=== PATIENT | male | born 1945 | race Caucasian/White ===

== ENCOUNTER 2020-02-04 08:11 | Outpatient (CLI) | payer MEDICARE, SELFPAY ==
--- NOTE | 2020-02-04 09:45 | ONC FU_ITS ---
Dr. Bautista follow up note Patient: August Macdonald Unit #: [id number]: 1945 Dicatated By: Hollis Bautista M.D.Date of Visit:Feb 04, 2020 Onc Med Follow-up/Prog Note History of Present Illness: Mr. Macdonald is a 73-year-old gentleman that presented to his primary care provider with a greater than 2 month history of constipation. He was referred to Dr. Donald Hargrove for consultation for evaluation of the constipation with colonoscopy and .Underwent colonoscopy on 03/31/2018. The colonoscopy revealed a large rectosigmoid mass extending from 15 cm from the anal verge all the way to the distal sigmoid. There was a biopsy of the proximal ascending colon which revealed polypoid segments of the colonic mucosa showing tubulous adenoma. Mr. Macdonald underwent CT of the chest, abdomen, pelvis on 03/31/2018 which revealed a 6.6 x 5.8 x 9.2 cm mass in sigmoid colon extension to the adjacent fat. It was producing significant narrowing of the lumen of the sigmoid colon. There was noted to be 0.8 cm lymph node adjacent to the mass. There were no other signs of metastatic disease. He did have repeat sigmoid colon evaluation and removal of a polypoid mass. The pathology revealed infiltrating, adenocarcinoma- moderately differentiated. MLH1, MSH2, MSH6, and PMS2 testing show intact nuclear expression. Mr. Macdonald was referred to radiation medical oncology for further assessment. It was recommended that he have neoadjuvant concurrent therapy prior to surgery resection. He would most likely require adjuvant chemotherapy following the surgery He underwent concurrent chemoradiation with radiation sensitizing agent is Xeloda. from 05/12/2018.till 06/19/2018. Mr Macdonald then had laparoscopic descending colostomy formation and repair of incarcerated umbilical hernia on 09/10/2018 , during laproscopy ,found to have nonresectable colorectal cancer directly invading the base of the bladder and bilateral pelvic sidewalls biopsies were obtained from pelvic mass showed reactive fibroinflammatory changes Mr. Macdonald was been offered palliative chemotherapy with modified FOLFOX-6 cycles. Mr. Macdonald began his first cycle of modified FOLFOX on 10/19/2018. Follow-up CT scan from 01/05/2019 continued to show decrease in the size of the sigmoid and rectal tumor. Residual tumor is difficult to measure but reported at a maximum diameter of approximated 1.8 cm. There is a fat plane the urinary bladder and sigmoid tumor. No adenopathy was reported. Small retroperitoneal nodes are less than 1 cm with no new nodes or increase in size of previous notes. No distant metastasis to the adrenals or liver. His spleen was 19.3 cm which was unchanged. Mr Macdonald was referred to colorectal surgery department at [facility] for second opinion. He saw Dr. Sandeep Pruitt , as per patient, he was a candidate for surgery with end-to-end anastomosis but was advised to finish his recommended 12 cycles of chemotherapy with FOLFOX prior to the surgery. Mr Madconald completed 12 doses of FOLFOX on 03/29/2019. On 05/12/2019, he underwent open right colectomy, anterior resection with the wording loop ileostomy and partial resection of the dome of the bladder and final pathology report showed adenocarcinoma, moderately differentiated with extension into pericolic soft tissue to bladder without invasion of bladder T4 a, clear surgical margins, no bladder involvement and 0 out of 20 positive lymph nodes Mr Macdonald was then referred to GI oncology [facility] for evaluation for clinical trial. He was seen by Dr. Butler on 06/08/2019 as per his evaluation he ordered [employer] and [employer], genomic analysis with his tumor and blood (circulating tumor DNA); baseline scans and it CEA and vitamin D and iron profile. Mr Macdonald declined clinical trial participation and has elected a trial of 6 months of Xeloda.Start his first cycle of modified dose Xeloda on 08/10/2019, for 14 days and repeat every 21 days.Adjuvant oral Xeloda therapy was discontinued on 09/15/2019 at patient's and his request, knowing the risk versus benefits associated with his disease status e.g. being high risk for recurrence. CT scan of abdomen pelvis done on 09/10/2019 showed no evidence of recurrence of disease. Stable mild splenomegaly, slightly aneurysmal distal infrarenal abdominal aorta measuring 2.7 x 2.9 cm. Small collection along the midline abdominal incision near the umbilicus with small pocket of air suspicious for infected fluid collection Left lower quadrant ileostomy.status post ileostomy reversal done on 12/15/[address] Pruitt at [facility], pathology report showed ostomy site changes Came for follow-up, denies any specific complaints, no fever or chills no nausea or vomiting no melena or no diarrhea or constipation, no jaundice, tolerated ileostomy reversal well.. Medications: Aspirin 1 Tablet (of 81 mg) Oral daily, Digoxin 1 Tablet (of 250 mcg) Oral daily, Gabapentin 2 Tablet (of 600 mg) Oral t.i.d., GlipiZIDE 1 Tablet (of 10 mg) Oral b.i.d., Hydrocodone-Acetaminophen 1 Tablet (of 10-325 mg) Oral q 4 to 6 hours PRN, Invokana 1 Tablet (of 300 mg) Oral daily, Januvia 1 Tablet (of 100 mg) Oral daily, Meloxicam 1 Tablet (of 15 mg) Oral daily, Metoprolol Tartrate 1 Tablet (of 1000 mg) Oral daily, Mirtazapine 1 Tablet (of 15 mg) Oral daily, Ondansetron HCl (8 mg) Tablet Oral PRN, Pantoprazole Sodium 1 Tablet (of 40 mg) Tablet, enteric coated Oral daily, ProAir HFA 1 Units (of 108 (90 base) mcg/act) Aerosol, solution Inhalation PRN, Simvastatin 1 Tablet (of 20 mg) Oral daily, Tamsulosin HCl 1 Tablet (of 0.4 mg) Capsule Oral at bedtime, Xeloda 4 Tablet (of 500 mg) Oral b.i.d. Allergies: No Known Allergies. Review of Systems: Constitutional - Appetite is good and weight has increased slightly since last visit. Patient denies any fever, chills, hot flashes, or night swearts. Energy level is fair, ENMT - No sinus congestion/drainage. No mouth sores. No sore throat or difficulty swallowing, Hematologic/Lymphatic - No abnormal bruising or bleeding, Respiratory - Frequent shortness of breath. No cough. No pleuritic pain or hemoptysis, Cardiovascular - No angina pain. No palpitations, Gastrointestinal - No nausea or vomiting. No heartburn or acid reflux. Pt has colostomy, Genitourinary (M) - No dysuria or hematuria. No urinary frequency. No urgency or incontinence, Musculoskeletal - No joint or bone pain, Integumentary - No skin ulcers or open wounds, Neurologic - No headache or dizziness. Patient has some numbness/paresthesias in feet.No other focal neurologic symptoms, Psychiatric - Patient reports some anxiety and depression. No insomnia. Vital Signs: Performed on Feb 04, 2020 08:22 Height - 65.00 in Weight - 227.6 lbs (LOW) BSA - 2.09 sq.m BMI - 37.87 (HIGH) Temperature - 98.1 F (LOW) Pulse - 58 /min (LOW) Respiration - 22 /min BP - 141/62 mm(hg) (HIGH) O2 Sat - 96 % Pain - 0 Performance Status: 0 - Fully active, able to carry on all predisease activities without restrictions. (ECOG) Physical Examination: ENMT - No oral exudates, ulcers, masses, thrush or mucositis. Oropharynx clear. Tongue normal, Respiratory - Lungs are clear to auscultation without rhonchi or wheezing, Cardiovascular - Regular rate and rhythm of heart, Abdomen - Non-tender, non-distended, Good bowel sounds. No guarding or rebound tenderness. No pulsatile masses, Extremities - no edema. Lab/Imaging: Test performed on Feb 02, 2020 18:56 CEA 2.4 ng/mL Test performed on Feb 02, 2020 11:50 Glucose 99 mg/dL BUN 17 mg/dL Creatinine 0.7 mg/dL Cr Clearance (Est) 150.18 mL/min Sodium 138.0 mmol/L Potassium 4.80 mmol/L Chloride 101.0 mmol/L CO2 29 mmol/L Calcium 9.50 mg/dL Protein, Total 7.20 g/dL Albumin 4.0 g/dL Globulin 3.2 g/dL Bilirubin, Total 0.4 mg/dL Alkaline Phosphatase 146 IU/L AST (SGOT) 30.0 IU/L ALT (SGPT) 22 IU/L WBC 7.0 10^9/L RBC 4.54 10^12/L HGB 13.3 g/dL HCT 40.6 % MCV 89.0 fl MCH 29.2 pg MCHC 32.6 g/dL RDW 15.1 % Platelet Count 169 10^9/L MPV 8.8 fL Test performed on Sep 13, 2019 10:11 BUN/Creatinine Ratio 19 Absolute Value Test performed on Aug 23, 2019 09:48 Neutrophils (Gran) 3.60 10^9/L Lymphocytes 0.62 10^9/L Monocytes 0.36 10^9/L Eosinophils 0.11 10^9/L Basophils 0.01 10^9/L Manual Segs 76.40 % Manual Lymphocytes 13.2 % Manual Monocytes 7.7 % Manual Eosinophils 2.40 % Manual Basophils 0.30 % Test performed on Aug 23, 2019 09:05 Vitamin D (1, 25-Dihydroxy) 23 pg/mL Test performed on Aug 10, 2019 10:58 Anion Gap 17.5 Neutrophil % 75.2 % Lymphocyte % 14.0 % Monocyte % 8.7 % Eosinophil % 1.5 % Basophils % 0.6 % Impression: 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 Macdonald is a 73-year-old gentleman that presented to his primary care provider with a greater than 2 month history of constipation. He was referred to Dr. Donald Hargrove for consultation for evaluation of the constipation with colonoscopy.and underwent colonoscopy on 03/31/2018. The colonoscopy revealed a large rectosigmoid mass extending from 15 cm from the anal verge all the way to the distal sigmoid. There was a biopsy of the proximal ascending colon which revealed polypoid segments of the colonic mucosa showing tubulous adenoma. Mr. Macdonald underwent CT of the chest, abdomen, pelvis on 03/31/2018 which revealed a 6.6 x 5.8 x 9.2 cm mass in sigmoid colon extension to the adjacent fat. It was producing significant narrowing of the lumen of the sigmoid colon. There was noted to be 0.8 cm lymph node adjacent to the mass. There were no other signs of metastatic disease. He did have repeat sigmoid colon evaluation and removal of a polypoid mass. The pathology revealed infiltrating, adenocarcinoma- moderately differentiated. MLH1, MSH2, MSH6, and PMS2 testing show intact nuclear expression. Mr. Macdonald was referred to radiation medical oncology for further assessment. It is been record that he have neoadjuvant concurrent therapy prior to surgical resection. He will most likely require adjuvant chemotherapy following the surgery. He began concurrent therapy on 05/12/2018. His Xeloda dose was 1500 mg twice a day on the days of radiation only. He remained on the Xeloda untill 06/19/2018. CT scan of abdomen pelvis done on 07/21/2018 showed significant reduction in the colorectal mass on 09/09/2018, he underwent laparoscopic descending colostomy formation once realized during laparoscopic evaluation the patient has nonresectable colorectal cancer directly invading the base of the bladder and bilateral pelvic sidewalls. And also underwent repair of incarcerated umbilical hernia in [place] 2. COPD 3. Hyperlipidemia 4. CAD stent replacement in 2004 5. Diabetes 6. Abdominal hernia 7. Total left knee replacement Recently on 09/09/2018, underwent laparoscopic evaluation and found to have nonresectable colorectal cancer directly invading the base of the bladder and bilateral pelvic sidewalls although biopsies from this mass showed chronic inflammation. The role of palliative chemotherapy with FOLFOX was discussed in detail and recommended modified dose FOLFOX ???[address] scan of pelvis. Mr Macdonald began his first cycle of chemotherapy on 10/18/2018. He is tolerating it well thus far. Follow-up CT scan of abdomen pelvis done on 01/05/2019 showed continued decrease in size of sigmoid/rectum tumor. Residual tumor is difficult to measure but reported at a maximum diameter of approximated 1.8 cm. There is a fat plane the urinary bladder and sigmoid tumor. No adenopathy was reported. Small retroperitoneal nodes are less than 1 cm with no new nodes or increase in size of previous notes. No distant metastasis to the adrenals or liver. His spleen is 19.3 cm which is unchanged. At patient's request ,he was referred to Department of colorectal surgery at [facility] for second opinion, patient saw Dr. Sandeep Pruitt. As per patient, surgery with end-to-end anastomosis was possible but he was advised to finish his recommended chemotherapy with FOLFOX prior to surgery. He completed 12 doses of FOLFOX on 03/29/2019. He was then referred back to [facility]. Status post concurrent combined chemoradiation with oral Xeloda till June 2018 followed by systemic chemotherapy with modified dose FOLFOX ???12 the 03/29/2019 followed by open right colectomy, anterior resection with diverting loop ileostomy and partial resection of dome of bladder which showed no invasion. Done on 05/12/2019, final pathology report showed adenocarcinoma, moderately differentiated with extension into pericolic soft tissue to bladder without invasion of bladder T4a, surgical margins free of tumor Bladder muscularis propria with fibrosis and no evidence of malignancy. Adenocarcinoma with extensive necrosis with associated fistula tract into periileal soft tissues and invasion limited to muscularis propria of ileum. Appendix with adenocarcinoma limited to periappendiceal soft tissue and no direct invasion of appendix. Left colon with diverticulum and no evidence of malignancy. 20 lymph nodes examined with no evidence of metastatic disease. Dr Bautista discussed with Mr & Mrs Macdonald further treatment options including clinical trials based on guardant 360 results which showed multiple mutation including NRAS,BRAF. and Mr Macdonald declined clinical trial but agreed to try 6 months of Xeloda as recommended by , medical oncologist at [facility]. We will consider Xeloda one thousand milligrams per meter square by mouth twice a day for 2 weeks and repeat every 21 days ???8 cycle, as long as tolerated. We will try this dose for 2 cycles and if tolerated well then will titrate up to 1250 mg/m??? by mouth twice a day 2 weeks on 1 week off. We will also check vit D level and schedule him for CT scan of abdomen pelvis after a month of treatment. Plan: Discussed with patient regarding his labs white blood count 7 hemoglobin 13.3 crit 40.6 platelets 169,000 CMP within normal limits, CEA 2.4 Clinically, patient doing well, with no signs symptoms suggestive of recurrence of disease his follow-up labs , shows within normal range values including CEA level. He will return to clinic in 3 months with CBC CMP and CEA and at that time we will order CT scan of abdomen pelvis as follow-up. Signed By: Hollis Bautista M.D. <<Signature on File>>
== END 2020-02-04 08:12 | disposition home or self-care (01) ==
PROVIDERS: Family Provider Family Medicine; PCP Family Medicine; Visit Provider Internal Medicine Hematology & Oncology
DX: Z08 Encounter for follow-up examination after completed treatment for malignant neoplasm (principal); Z85.038 Personal history of other malignant neoplasm of large intestine; J44.9 Chronic obstructive pulmonary disease, unspecified; E78.5 Hyperlipidemia, unspecified; I25.10 Atherosclerotic heart disease of native coronary artery without angina pectoris; E11.9 Type 2 diabetes mellitus without complications; Z79.82 Long term (current) use of aspirin; Z79.84 Long term (current) use of oral hypoglycemic drugs; Z79.891 Long term (current) use of opiate analgesic; Z96.652 Presence of left artificial knee joint; Z95.5 Presence of coronary angioplasty implant and graft; Z92.21 Personal history of antineoplastic chemotherapy; Z92.3 Personal history of irradiation; Z90.49 Acquired absence of other specified parts of digestive tract
CPT/HCPCS: G0463

== ENCOUNTER 2020-05-05 09:55 | Outpatient (CLI) | payer MEDICARE, SELFPAY ==
--- NOTE | 2020-05-05 10:32 | ONC FU_ITS ---
Dr. Bautista follow up note Patient: August Macdonald Unit #: [id number]: 1945 Dicatated By: Hollis Bautista M.D.Date of Visit:May 05, 2020 Onc Med Follow-up/Prog Note History of Present Illness: Mr. Macdonald is a 74-year-old gentleman that presented to his primary care provider with a greater than 2 month history of constipation. He was referred to Dr. Donald Hargrove for consultation for evaluation of the constipation with colonoscopy and .Underwent colonoscopy on 03/31/2018. The colonoscopy revealed a large rectosigmoid mass extending from 15 cm from the anal verge all the way to the distal sigmoid. There was a biopsy of the proximal ascending colon which revealed polypoid segments of the colonic mucosa showing tubulous adenoma. Mr. Macdonald underwent CT of the chest, abdomen, pelvis on 03/31/2018 which revealed a 6.6 x 5.8 x 9.2 cm mass in sigmoid colon extension to the adjacent fat. It was producing significant narrowing of the lumen of the sigmoid colon. There was noted to be 0.8 cm lymph node adjacent to the mass. There were no other signs of metastatic disease. He did have repeat sigmoid colon evaluation and removal of a polypoid mass. The pathology revealed infiltrating, adenocarcinoma- moderately differentiated. MLH1, MSH2, MSH6, and PMS2 testing show intact nuclear expression. Mr. Macdonald was referred to radiation medical oncology for further assessment. It was recommended that he have neoadjuvant concurrent therapy prior to surgery resection. He would most likely require adjuvant chemotherapy following the surgery He underwent concurrent chemoradiation with radiation sensitizing agent is Xeloda. from 05/12/2018.till 06/19/2018. Mr Macdonald then had laparoscopic descending colostomy formation and repair of incarcerated umbilical hernia on 09/10/2018 , during laproscopy ,found to have nonresectable colorectal cancer directly invading the base of the bladder and bilateral pelvic sidewalls biopsies were obtained from pelvic mass showed reactive fibroinflammatory changes Mr. Macdonald was been offered palliative chemotherapy with modified FOLFOX-6 cycles. Mr. Macdonald began his first cycle of modified FOLFOX on 10/19/2018. Follow-up CT scan from 01/05/2019 continued to show decrease in the size of the sigmoid and rectal tumor. Residual tumor is difficult to measure but reported at a maximum diameter of approximated 1.8 cm. There is a fat plane the urinary bladder and sigmoid tumor. No adenopathy was reported. Small retroperitoneal nodes are less than 1 cm with no new nodes or increase in size of previous notes. No distant metastasis to the adrenals or liver. His spleen was 19.3 cm which was unchanged. Mr Macdonald was referred to colorectal surgery department at [facility] for second opinion. He saw Dr. Sandeep Pruitt , as per patient, he was a candidate for surgery with end-to-end anastomosis but was advised to finish his recommended 12 cycles of chemotherapy with FOLFOX prior to the surgery. Mr Macdonald completed 12 doses of FOLFOX on 03/29/2019. On 05/12/2019, he underwent open right colectomy, anterior resection with the wording loop ileostomy and partial resection of the dome of the bladder and final pathology report showed adenocarcinoma, moderately differentiated with extension into pericolic soft tissue to bladder without invasion of bladder T4 a, clear surgical margins, no bladder involvement and 0 out of 20 positive lymph nodes Mr Macdonald was then referred to GI oncology [facility] for evaluation for clinical trial. He was seen by Dr. Butler on 06/08/2019 as per his evaluation he ordered [employer] and [employer], genomic analysis with his tumor and blood (circulating tumor DNA); baseline scans and it CEA and vitamin D and iron profile. Mr Macdonald declined clinical trial participation and has elected a trial of 6 months of Xeloda.Start his first cycle of modified dose Xeloda on 08/10/2019, for 14 days and repeat every 21 days.Adjuvant oral Xeloda therapy was discontinued on 09/15/2019 at patient's and his request, knowing the risk versus benefits associated with his disease status e.g. being high risk for recurrence. CT scan of abdomen pelvis done on 09/10/2019 showed no evidence of recurrence of disease. Stable mild splenomegaly, slightly aneurysmal distal infrarenal abdominal aorta measuring 2.7 x 2.9 cm. Small collection along the midline abdominal incision near the umbilicus with small pocket of air suspicious for infected fluid collection Left lower quadrant ileostomy.status post ileostomy reversal done on 12/15/[address] Pruitt at [facility], pathology report showed ostomy site changes Came for follow-up, denies any specific complaints with no nausea vomiting no fevers no chills no diarrhea or constipation no jaundice no abdominal pain left lower quadrant ileostomy closure site is healing well with occasionally some discharge. Medications: Aspirin 1 Tablet (of 81 mg) Oral daily, Digoxin 1 Tablet (of 250 mcg) Oral daily, Gabapentin 2 Tablet (of 600 mg) Oral t.i.d., GlipiZIDE 1 Tablet (of 10 mg) Oral b.i.d., Hydrocodone-Acetaminophen 1 Tablet (of 10-325 mg) Oral q 4 to 6 hours PRN, Invokana 1 Tablet (of 300 mg) Oral daily, Januvia 1 Tablet (of 100 mg) Oral daily, Meloxicam 1 Tablet (of 15 mg) Oral daily, Metoprolol Tartrate 1 Tablet (of 25 mg) Oral daily, Mirtazapine 1 Tablet (of 15 mg) Oral daily, Ondansetron HCl (8 mg) Tablet Oral PRN, Pantoprazole Sodium 1 Tablet (of 40 mg) Tablet, enteric coated Oral daily, ProAir HFA 1 Units (of 108 (90 base) mcg/act) Aerosol, solution Inhalation PRN, Simvastatin 1 Tablet (of 20 mg) Oral daily, Tamsulosin HCl 1 Tablet (of 0.4 mg) Capsule Oral at bedtime, Xeloda 4 Tablet (of 500 mg) Oral b.i.d. Allergies: No Known Allergies. Review of Systems: Constitutional - Appetite is good and weight has increased slightly since last visit. Patient denies any fever, chills, hot flashes, or night swearts. Energy level is fair, ENMT - No sinus congestion/drainage. No mouth sores. No sore throat or difficulty swallowing, Hematologic/Lymphatic - No abnormal bruising or bleeding, Respiratory - Frequent shortness of breath. No cough. No pleuritic pain or hemoptysis, Cardiovascular - No angina pain. No palpitations, Gastrointestinal - No nausea or vomiting. No heartburn or acid reflux. Pt has colostomy, Genitourinary (M) - No dysuria or hematuria. No urinary frequency. No urgency or incontinence, Musculoskeletal - No joint or bone pain, Integumentary - No skin ulcers or open wounds, Neurologic - No headache or dizziness. Patient has some numbness/paresthesias in feet.No other focal neurologic symptoms, Psychiatric - Patient reports some anxiety and depression. No insomnia. Vital Signs: Performed on May 05, 2020 10:11 Height - 65.00 in Weight - 126.3 lbs (LOW) BSA - 1.63 sq.m BMI - 21.02 Temperature - 98.0 F (LOW) Pulse - 99 /min Respiration - 17 /min BP - 125/57 mm(hg) O2 Sat - 91 % (LOW) Pain - 0 Performance Status: 0 - Fully active, able to carry on all predisease activities without restrictions. (ECOG) Physical Examination: ENMT - No mouth sores, no thrush, no jaundice, Respiratory - Lungs are clear, Cardiovascular - Regular rate and rhythm of heart, Abdomen - Soft, bowel sounds present, nontender, left lower quadrant post colostomy closure site, no discharge seen nontender, Extremities - No visible edema or rash. 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 Macdonald is a 73-year-old gentleman that presented to his primary care provider with a greater than 2 month history of constipation. He was referred to Dr. Donald Hargrove for consultation for evaluation of the constipation with colonoscopy.and underwent colonoscopy on 03/31/2018. The colonoscopy revealed a large rectosigmoid mass extending from 15 cm from the anal verge all the way to the distal sigmoid. There was a biopsy of the proximal ascending colon which revealed polypoid segments of the colonic mucosa showing tubulous adenoma. Mr. Macdonald underwent CT of the chest, abdomen, pelvis on 03/31/2018 which revealed a 6.6 x 5.8 x 9.2 cm mass in sigmoid colon extension to the adjacent fat. It was producing significant narrowing of the lumen of the sigmoid colon. There was noted to be 0.8 cm lymph node adjacent to the mass. There were no other signs of metastatic disease. He did have repeat sigmoid colon evaluation and removal of a polypoid mass. The pathology revealed infiltrating, adenocarcinoma- moderately differentiated. MLH1, MSH2, MSH6, and PMS2 testing show intact nuclear expression. Mr. Macdonald was referred to radiation medical oncology for further assessment. It is been record that he have neoadjuvant concurrent therapy prior to surgical resection. He will most likely require adjuvant chemotherapy following the surgery. He began concurrent therapy on 05/12/2018. His Xeloda dose was 1500 mg twice a day on the days of radiation only. He remained on the Xeloda untill 06/19/2018. CT scan of abdomen pelvis done on 07/21/2018 showed significant reduction in the colorectal mass on 09/09/2018, he underwent laparoscopic descending colostomy formation once realized during laparoscopic evaluation the patient has nonresectable colorectal cancer directly invading the base of the bladder and bilateral pelvic sidewalls. And also underwent repair of incarcerated umbilical hernia in [place] 2. COPD 3. Hyperlipidemia 4. CAD stent replacement in 2004 5. Diabetes 6. Abdominal hernia 7. Total left knee replacement Recently on 09/09/2018, underwent laparoscopic evaluation and found to have nonresectable colorectal cancer directly invading the base of the bladder and bilateral pelvic sidewalls although biopsies from this mass showed chronic inflammation. The role of palliative chemotherapy with FOLFOX was discussed in detail and recommended modified dose FOLFOX ???[address] scan of pelvis. Mr Macdonald began his first cycle of chemotherapy on 10/18/2018. He is tolerating it well thus far. Follow-up CT scan of abdomen pelvis done on 01/05/2019 showed continued decrease in size of sigmoid/rectum tumor. Residual tumor is difficult to measure but reported at a maximum diameter of approximated 1.8 cm. There is a fat plane the urinary bladder and sigmoid tumor. No adenopathy was reported. Small retroperitoneal nodes are less than 1 cm with no new nodes or increase in size of previous notes. No distant metastasis to the adrenals or liver. His spleen is 19.3 cm which is unchanged. At patient's request ,he was referred to Department of colorectal surgery at [facility] for second opinion, patient saw Dr. Sandeep Pruitt. As per patient, surgery with end-to-end anastomosis was possible but he was advised to finish his recommended chemotherapy with FOLFOX prior to surgery. He completed 12 doses of FOLFOX on 03/29/2019. He was then referred back to [facility]. Status post concurrent combined chemoradiation with oral Xeloda till June 2018 followed by systemic chemotherapy with modified dose FOLFOX ???12 the 03/29/2019 followed by open right colectomy, anterior resection with diverting loop ileostomy and partial resection of dome of bladder which showed no invasion. Done on 05/12/2019, final pathology report showed adenocarcinoma, moderately differentiated with extension into pericolic soft tissue to bladder without invasion of bladder T4a, surgical margins free of tumor Bladder muscularis propria with fibrosis and no evidence of malignancy. Adenocarcinoma with extensive necrosis with associated fistula tract into periileal soft tissues and invasion limited to muscularis propria of ileum. Appendix with adenocarcinoma limited to periappendiceal soft tissue and no direct invasion of appendix. Left colon with diverticulum and no evidence of malignancy. 20 lymph nodes examined with no evidence of metastatic disease. Dr Bautista discussed with Mr & Mrs Macdonald further treatment options including clinical trials based on guardant 360 results which showed multiple mutation including NRAS,BRAF. and Mr Macdonald declined clinical trial but agreed to try 6 months of Xeloda as recommended by , medical oncologist at [facility]. We will consider Xeloda one thousand milligrams per meter square by mouth twice a day for 2 weeks and repeat every 21 days ???8 cycle, as long as tolerated. We will try this dose for 2 cycles and if tolerated well then will titrate up to 1250 mg/m??? by mouth twice a day 2 weeks on 1 week off. We will also check vit D level and schedule him for CT scan of abdomen pelvis after a month of treatment. Plan: Discussed with patient regarding his labs white blood count 6.3 hemoglobin 13.8 crit 42.8 platelets 142,000 CMP within normal limits except glucose 195 and CEA is pending Clinically, patient doing well with no signs symptom suggestive of recurrence of disease. Left lower quadrant colostomy closure site wound is healing well except as per patient off and on lateral discharge not foul-smelling no pus ,no local tenderness observed. At this point, we will schedule him for follow-up CT scan of abdomen pelvis and patient return to clinic in 1 month for port flush and to discuss CT scan findings. Signed By: Hollis Bautista M.D. <<Signature on File>>
== END 2020-05-05 09:56 | disposition home or self-care (01) ==
LOC: ONCMED 09:58
PROVIDERS: PCP Family Medicine; Visit Provider Internal Medicine Hematology & Oncology
DX: Z08 Encounter for follow-up examination after completed treatment for malignant neoplasm (principal); Z85.038 Personal history of other malignant neoplasm of large intestine; J44.9 Chronic obstructive pulmonary disease, unspecified; E78.5 Hyperlipidemia, unspecified; I25.10 Atherosclerotic heart disease of native coronary artery without angina pectoris; E11.9 Type 2 diabetes mellitus without complications; Z90.49 Acquired absence of other specified parts of digestive tract; Z95.5 Presence of coronary angioplasty implant and graft; Z96.652 Presence of left artificial knee joint; Z92.21 Personal history of antineoplastic chemotherapy; Z92.3 Personal history of irradiation; Z95.828 Presence of other vascular implants and grafts
CPT/HCPCS: G0463

== ENCOUNTER 2020-05-22 08:19 | Outpatient (CLI) | payer MEDICARE, SELFPAY ==
--- NOTE | 2020-05-22 08:29 | CT_ITS ---
WS: [id number] CT ABDOMEN PELVIS TECHNIQUE: Contrast-enhanced CT of the abdomen and pelvis with coronal and sagittal reformatted image s. CLINICAL INFORMATION: COLON CANCER COMPARISON: Multiple prior CTs including , 2 , 9 , 5 DLP: 1138.[address] scans at [facility] use at least one of these dose optimization techniques: automat ed exposure control; mA and/or kV adjustment per patient size (includes targeted exams where dose is matched to clinical indication); or iterative reconstruction. FINDINGS: Stable Colostomy revision with interval takedown of the left lower quadrant ileostomy. Postoperative changes distal sigmoid resection with anastomosis is unchanged since . No evidence of new or progressed disease. No evidence of bowel obstruction. No visualized residual sigmoid mass. Anastomosis involving the transverse colon. Previously described small retroperitoneal lymph nodes an d upper abdominal lymph nodes unchanged. No lymphadenopathy. Mild splenomegaly unchanged. Slightly an eurysmal infrarenal abdominal aorta with aortic calcification is stable. Aorta measures approximately 2.8 x 2.9 cm AP by transverse. Normal liver and gallbladder. Adrenal glands are normal. Normal bilateral renal parenchymal enhanceme nt. Slight atelectasis in the lung bases. Previously described small fluid collection along the umbil icus has resolved. No residual drainable fluid collection. Associated fat-containing umbilical hernia . No herniated bowel. CT/CT abdomen pelvis w con* [id number] IMPRESSION: 1. Interval takedown Left lower quadrant ileostomy 2. Prior postoperative changes distal sigmoid resection with anastomosis. No e vidence of new or progressed disease. 3. Postoperative changes with anastomosis transverse colon. 4. No abdominal lymphadenopathy. 5. Previously described small fluid collection along the umbilicus has resolve d. 6. Slightly aneurysmal distal infrarenal abdominal aorta unchanged. 7. Stable mild splenomegaly
[2020-05-22] MEDS: iohexol 300 mg/mL 50 mL Btl PO (08:45)
[2020-05-22] MEDS: iohexol 300 mg/mL 100 mL Btl IV (10:17)
== END 2020-05-22 08:20 | disposition home or self-care (01) ==
LOC: RADWPI 08:25
PROVIDERS: Family Provider Family Medicine; PCP Family Medicine; Visit Provider Internal Medicine Hematology & Oncology
DX: C19 Malignant neoplasm of rectosigmoid junction (principal); I71.4 Abdominal aortic aneurysm, without rupture; R16.1 Splenomegaly, not elsewhere classified
CPT/HCPCS: 74177; Q9967

== ENCOUNTER 2020-06-09 08:55 | Outpatient (CLI) | payer MEDICARE, SELFPAY ==
--- NOTE | 2020-06-09 09:46 | ONC FU_ITS ---
Dr. Bautista follow up note Patient: August Macdonald Unit #: [id number]: 1945 Dicatated By: Hollis Bautista M.D.Date of Visit:Jun 09, 2020 Onc Med Follow-up/Prog Note History of Present Illness: Mr. Macdonald is a 74-year-old gentleman that presented to his primary care provider with a greater than 2 month history of constipation. He was referred to Dr. Donald Hargrove for consultation for evaluation of the constipation with colonoscopy and .Underwent colonoscopy on 03/31/2018. The colonoscopy revealed a large rectosigmoid mass extending from 15 cm from the anal verge all the way to the distal sigmoid. There was a biopsy of the proximal ascending colon which revealed polypoid segments of the colonic mucosa showing tubulous adenoma. Mr. Macdonald underwent CT of the chest, abdomen, pelvis on 03/31/2018 which revealed a 6.6 x 5.8 x 9.2 cm mass in sigmoid colon extension to the adjacent fat. It was producing significant narrowing of the lumen of the sigmoid colon. There was noted to be 0.8 cm lymph node adjacent to the mass. There were no other signs of metastatic disease. He did have repeat sigmoid colon evaluation and removal of a polypoid mass. The pathology revealed infiltrating, adenocarcinoma- moderately differentiated. MLH1, MSH2, MSH6, and PMS2 testing show intact nuclear expression. Mr. Macdonald was referred to radiation medical oncology for further assessment. It was recommended that he have neoadjuvant concurrent therapy prior to surgery resection. He would most likely require adjuvant chemotherapy following the surgery He underwent concurrent chemoradiation with radiation sensitizing agent is Xeloda. from 05/12/2018.till 06/19/2018. Mr Macdonald then had laparoscopic descending colostomy formation and repair of incarcerated umbilical hernia on 09/10/2018 , during laproscopy ,found to have nonresectable colorectal cancer directly invading the base of the bladder and bilateral pelvic sidewalls biopsies were obtained from pelvic mass showed reactive fibroinflammatory changes Mr. Macdonald was been offered palliative chemotherapy with modified FOLFOX-6 cycles. Mr. Macdonald began his first cycle of modified FOLFOX on 10/19/2018. Follow-up CT scan from 01/05/2019 continued to show decrease in the size of the sigmoid and rectal tumor. Residual tumor is difficult to measure but reported at a maximum diameter of approximated 1.8 cm. There is a fat plane the urinary bladder and sigmoid tumor. No adenopathy was reported. Small retroperitoneal nodes are less than 1 cm with no new nodes or increase in size of previous notes. No distant metastasis to the adrenals or liver. His spleen was 19.3 cm which was unchanged. Mr Macdonald was referred to colorectal surgery department at [facility] for second opinion. He saw Dr. Sandeep Pruitt , as per patient, he was a candidate for surgery with end-to-end anastomosis but was advised to finish his recommended 12 cycles of chemotherapy with FOLFOX prior to the surgery. Mr Macdonald completed 12 doses of FOLFOX on 03/29/2019. On 05/12/2019, he underwent open right colectomy, anterior resection with the wording loop ileostomy and partial resection of the dome of the bladder and final pathology report showed adenocarcinoma, moderately differentiated with extension into pericolic soft tissue to bladder without invasion of bladder T4 a, clear surgical margins, no bladder involvement and 0 out of 20 positive lymph nodes Mr Macdonald was then referred to GI oncology [facility] for evaluation for clinical trial. He was seen by Dr. Butler on 06/08/2019 as per his evaluation he ordered [facility] and [employer], genomic analysis with his tumor and blood (circulating tumor DNA); baseline scans and it CEA and vitamin D and iron profile. Mr Macdonald declined clinical trial participation and has elected a trial of 6 months of Xeloda.Start his first cycle of modified dose Xeloda on 08/10/2019, for 14 days and repeat every 21 days.Adjuvant oral Xeloda therapy was discontinued on 09/15/2019 at patient's and his request, knowing the risk versus benefits associated with his disease status e.g. being high risk for recurrence. CT scan of abdomen pelvis done on 09/10/2019 showed no evidence of recurrence of disease. Stable mild splenomegaly, slightly aneurysmal distal infrarenal abdominal aorta measuring 2.7 x 2.9 cm. Small collection along the midline abdominal incision near the umbilicus with small pocket of air suspicious for infected fluid collection Left lower quadrant ileostomy.status post ileostomy reversal done on 12/15/[address] [facility], pathology report showed ostomy site changes Follow-up CT scan of abdomen pelvis done on May 22, 2020 showed interval takedown left lower quadrant ileostomy. No evidence of new or progressive disease. Postoperative changes with anastomosis transverse colon. No abdominal lymphadenopathy. Stable mild splenomegaly., Normal liver. Came for follow-up, denies any specific complaints, no fever chills, no nausea or vomiting, no diarrhea or constipation, no jaundice, no abdominal pain, appetite is good. Medications: Aspirin 1 Tablet (of 81 mg) Oral daily, Digoxin 1 Tablet (of 250 mcg) Oral daily, Gabapentin 2 Tablet (of 600 mg) Oral t.i.d., GlipiZIDE 1 Tablet (of 10 mg) Oral b.i.d., Hydrocodone-Acetaminophen 1 Tablet (of 10-325 mg) Oral q 4 to 6 hours PRN, Invokana 1 Tablet (of 300 mg) Oral daily, Januvia 1 Tablet (of 100 mg) Oral daily, Meloxicam 1 Tablet (of 15 mg) Oral daily, Metoprolol Tartrate 1 Tablet (of 25 mg) Oral daily, Mirtazapine 1 Tablet (of 15 mg) Oral daily, Ondansetron HCl (8 mg) Tablet Oral PRN, Pantoprazole Sodium 1 Tablet (of 40 mg) Tablet, enteric coated Oral daily, ProAir HFA 1 Units (of 108 (90 base) mcg/act) Aerosol, solution Inhalation PRN, Simvastatin 1 Tablet (of 20 mg) Oral daily Allergies: No Known Allergies. Review of Systems: Constitutional - Appetite is good and weight has increased significantly since last visit. Patient denies any fever, chills, hot flashes, or night swearts. Energy level is fair, ENMT - No sinus congestion/drainage. No mouth sores. No sore throat or difficulty swallowing, Hematologic/Lymphatic - No abnormal bruising or bleeding, Respiratory - Frequent shortness of breath. No cough. No pleuritic pain or hemoptysis, Cardiovascular - No angina pain. No palpitations, Gastrointestinal - No nausea or vomiting. No heartburn or acid reflux. Pt has colostomy, Genitourinary (M) - No dysuria or hematuria. No urinary frequency. No urgency or incontinence, Musculoskeletal - No joint or bone pain, Integumentary - No skin ulcers or open wounds, Neurologic - No headache or dizziness. Patient has some numbness/paresthesias in feet.No other focal neurologic symptoms, Psychiatric - Patient reports some anxiety and depression. No insomnia. Vital Signs: Performed on Jun 09, 2020 09:04 Height - 65.00 in Weight - 241 lbs (HIGH) BSA - 2.14 sq.m BMI - 40.10 (HIGH) Temperature - 97.8 F (LOW) Pulse - 97 /min Respiration - 16 /min BP - 152/77 mm(hg) (HIGH) O2 Sat - 88 % (LOW) Pain - 0 Performance Status: 0 - Fully active, able to carry on all predisease activities without restrictions. (ECOG) Physical Examination: ENMT - No mouth sores, no thrush, no jaundice, Respiratory - Lungs are clear, Cardiovascular - Regular rate and rhythm of heart, Abdomen - Soft, bowel sounds, no tenderness, Extremities - No visible edema. 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 Macdonald is a 73-year-old gentleman that presented to his primary care provider with a greater than 2 month history of constipation. He was referred to Dr. Donald Hargrove for consultation for evaluation of the constipation with colonoscopy.and underwent colonoscopy on 03/31/2018. The colonoscopy revealed a large rectosigmoid mass extending from 15 cm from the anal verge all the way to the distal sigmoid. There was a biopsy of the proximal ascending colon which revealed polypoid segments of the colonic mucosa showing tubulous adenoma. Mr. Macdonald underwent CT of the chest, abdomen, pelvis on 03/31/2018 which revealed a 6.6 x 5.8 x 9.2 cm mass in sigmoid colon extension to the adjacent fat. It was producing significant narrowing of the lumen of the sigmoid colon. There was noted to be 0.8 cm lymph node adjacent to the mass. There were no other signs of metastatic disease. He did have repeat sigmoid colon evaluation and removal of a polypoid mass. The pathology revealed infiltrating, adenocarcinoma- moderately differentiated. MLH1, MSH2, MSH6, and PMS2 testing show intact nuclear expression. Mr. Macdonald was referred to radiation medical oncology for further assessment. It is been record that he have neoadjuvant concurrent therapy prior to surgical resection. He will most likely require adjuvant chemotherapy following the surgery. He began concurrent therapy on 05/12/2018. His Xeloda dose was 1500 mg twice a day on the days of radiation only. He remained on the Xeloda untill 06/19/2018. CT scan of abdomen pelvis done on 07/21/2018 showed significant reduction in the colorectal mass on 09/09/2018, he underwent laparoscopic descending colostomy formation once realized during laparoscopic evaluation the patient has nonresectable colorectal cancer directly invading the base of the bladder and bilateral pelvic sidewalls. And also underwent repair of incarcerated umbilical hernia in [place] 2. COPD 3. Hyperlipidemia 4. CAD stent replacement in 2004 5. Diabetes 6. Abdominal hernia 7. Total left knee replacement Recently on 09/09/2018, underwent laparoscopic evaluation and found to have nonresectable colorectal cancer directly invading the base of the bladder and bilateral pelvic sidewalls although biopsies from this mass showed chronic inflammation. The role of palliative chemotherapy with FOLFOX was discussed in detail and recommended modified dose FOLFOX ???[address] scan of pelvis. Mr Macdonald began his first cycle of chemotherapy on 10/18/2018. He is tolerating it well thus far. Follow-up CT scan of abdomen pelvis done on 01/05/2019 showed continued decrease in size of sigmoid/rectum tumor. Residual tumor is difficult to measure but reported at a maximum diameter of approximated 1.8 cm. There is a fat plane the urinary bladder and sigmoid tumor. No adenopathy was reported. Small retroperitoneal nodes are less than 1 cm with no new nodes or increase in size of previous notes. No distant metastasis to the adrenals or liver. His spleen is 19.3 cm which is unchanged. At patient's request ,he was referred to Department of colorectal surgery at [facility] for second opinion, patient saw Dr. Sandeep Pruitt. As per patient, surgery with end-to-end anastomosis was possible but he was advised to finish his recommended chemotherapy with FOLFOX prior to surgery. He completed 12 doses of FOLFOX on 03/29/2019. He was then referred back to [facility]. Status post concurrent combined chemoradiation with oral Xeloda till June 2018 followed by systemic chemotherapy with modified dose FOLFOX ???12 the 03/29/2019 followed by open right colectomy, anterior resection with diverting loop ileostomy and partial resection of dome of bladder which showed no invasion. Done on 05/12/2019, final pathology report showed adenocarcinoma, moderately differentiated with extension into pericolic soft tissue to bladder without invasion of bladder T4a, surgical margins free of tumor Bladder muscularis propria with fibrosis and no evidence of malignancy. Adenocarcinoma with extensive necrosis with associated fistula tract into periileal soft tissues and invasion limited to muscularis propria of ileum. Appendix with adenocarcinoma limited to periappendiceal soft tissue and no direct invasion of appendix. Left colon with diverticulum and no evidence of malignancy. 20 lymph nodes examined with no evidence of metastatic disease. discussed with Mr & Mrs Macdonald further treatment options including clinical trials based on guardant 360 results which showed multiple mutation including NRAS,BRAF. and Mr Macdonald declined clinical trial but agreed to try 6 months of Xeloda as recommended by , medical oncologist at [facility].On August 10, 2019 was sterted on Xeloda one thousand milligrams per meter square by mouth twice a day for 2 weeks and repeat every 21 days ???8 cycle, as long as tolerated. We will try this dose for 2 cycles and if tolerated well then will titrate up to 1250 mg/m??? by mouth twice a day 2 weeks on 1 week off. But adjuvant oral Xeloda therapy was discontinued on September 15, 2019 at patient and his 's request, knowing the risk versus benefits associated with his disease status, being high risk for recurrence. And follow-up CT scan of abdomen pelvis done September 10, 2019 showed no evidence of recurrence of disease except stable mild splenomegaly and slightly aneurysmal distal infrarenal abdominal aorta measuring 2.7 x 2.9 cm. Follow-up CT scan of abdomen pelvis done on May 22, 2020 showed interval takedown left lower quadrant ileostomy and stable mild splenomegaly and no evidence of new or progressive disease, postoperative changes seen. Plan: Discussed with patient regarding his labs white blood count 5.9 hemoglobin 14.1 crit 43 platelets 130,000 CMP within normal limits except glucose 282 Clinically, patient is doing well with no signs symptom suggestive of recurrence of disease. Lab work-up and follow-up CT scan done recently showed no evidence of disease. At this point we will continue to monitor and he will return to clinic in 4 months with CBC CMP and CEA Mild progressive thrombocytopenia could be due to mild splenic sequestration as follow-up CT scan of abdomen shows mild but stable splenomegaly. We will continue to monitor. Patient has history of heavy alcohol use/abuse, not using currently. We will continue to monitor and consider work-up if it (thrombocytopenia) continues to progress Signed By: Hollis Bautista M.D. <<Signature on File>>
== END 2020-06-09 08:56 | disposition home or self-care (01) ==
LOC: ONCMED 09:01
PROVIDERS: PCP Family Medicine; Visit Provider Internal Medicine Hematology & Oncology
DX: Z08 Encounter for follow-up examination after completed treatment for malignant neoplasm (principal); Z85.038 Personal history of other malignant neoplasm of large intestine; D69.6 Thrombocytopenia, unspecified; R16.1 Splenomegaly, not elsewhere classified; F10.11 Alcohol abuse, in remission; Z92.21 Personal history of antineoplastic chemotherapy; Z92.3 Personal history of irradiation; J44.9 Chronic obstructive pulmonary disease, unspecified; E78.5 Hyperlipidemia, unspecified; I25.10 Atherosclerotic heart disease of native coronary artery without angina pectoris; E11.9 Type 2 diabetes mellitus without complications; Z95.5 Presence of coronary angioplasty implant and graft; Z96.652 Presence of left artificial knee joint; Z90.49 Acquired absence of other specified parts of digestive tract
CPT/HCPCS: G0463

== ENCOUNTER 2020-10-06 07:44 | Outpatient (CLI) | payer MEDICARE, SELFPAY ==
--- NOTE | 2020-10-06 10:51 | ONC FU_ITS ---
Dr. Bautista follow up note Patient: August Macdonald Unit #: [id number]: 1945 Dicatated By: Hollis Bautista M.D.Date of Visit:Oct 06, 2020 Onc Med Follow-up/Prog Note History of Present Illness: Mr. Macdonald is a 74-year-old gentleman that presented to his primary care provider with a greater than 2 month history of constipation. He was referred to Dr. Donald Hargrove for consultation for evaluation of the constipation with colonoscopy and .Underwent colonoscopy on 03/31/2018. The colonoscopy revealed a large rectosigmoid mass extending from 15 cm from the anal verge all the way to the distal sigmoid. There was a biopsy of the proximal ascending colon which revealed polypoid segments of the colonic mucosa showing tubulous adenoma. Mr. Macdonald underwent CT of the chest, abdomen, pelvis on 03/31/2018 which revealed a 6.6 x 5.8 x 9.2 cm mass in sigmoid colon extension to the adjacent fat. It was producing significant narrowing of the lumen of the sigmoid colon. There was noted to be 0.8 cm lymph node adjacent to the mass. There were no other signs of metastatic disease. He did have repeat sigmoid colon evaluation and removal of a polypoid mass. The pathology revealed infiltrating, adenocarcinoma- moderately differentiated. MLH1, MSH2, MSH6, and PMS2 testing show intact nuclear expression. Mr. Macdonald was referred to radiation medical oncology for further assessment. It was recommended that he have neoadjuvant concurrent therapy prior to surgery resection. He would most likely require adjuvant chemotherapy following the surgery He underwent concurrent chemoradiation with radiation sensitizing agent is Xeloda. from 05/12/2018.till 06/19/2018. Mr Macdonald then had laparoscopic descending colostomy formation and repair of incarcerated umbilical hernia on 09/10/2018 , during laproscopy ,found to have nonresectable colorectal cancer directly invading the base of the bladder and bilateral pelvic sidewalls biopsies were obtained from pelvic mass showed reactive fibroinflammatory changes Mr. Macdonald was been offered palliative chemotherapy with modified FOLFOX-6 cycles. Mr. Macdonald began his first cycle of modified FOLFOX on 10/19/2018. Follow-up CT scan from 01/05/2019 continued to show decrease in the size of the sigmoid and rectal tumor. Residual tumor is difficult to measure but reported at a maximum diameter of approximated 1.8 cm. There is a fat plane the urinary bladder and sigmoid tumor. No adenopathy was reported. Small retroperitoneal nodes are less than 1 cm with no new nodes or increase in size of previous notes. No distant metastasis to the adrenals or liver. His spleen was 19.3 cm which was unchanged. Mr Macdonald was referred to colorectal surgery department at [facility] for second opinion. He saw Dr. Sandeep Pruitt , as per patient, he was a candidate for surgery with end-to-end anastomosis but was advised to finish his recommended 12 cycles of chemotherapy with FOLFOX prior to the surgery. Mr Macdonald completed 12 doses of FOLFOX on 03/29/2019. On 05/12/2019, he underwent open right colectomy, anterior resection with the wording loop ileostomy and partial resection of the dome of the bladder and final pathology report showed adenocarcinoma, moderately differentiated with extension into pericolic soft tissue to bladder without invasion of bladder T4 a, clear surgical margins, no bladder involvement and 0 out of 20 positive lymph nodes Mr Macdonald was then referred to GI oncology [facility] for evaluation for clinical trial. He was seen by Dr. Butler on 06/08/2019 as per his evaluation he ordered [employer] and [employer], genomic analysis with his tumor and blood (circulating tumor DNA); baseline scans and it CEA and vitamin D and iron profile. Mr Macdonald declined clinical trial participation and has elected a trial of 6 months of Xeloda.Start his first cycle of modified dose Xeloda on 08/10/2019, for 14 days and repeat every 21 days.Adjuvant oral Xeloda therapy was discontinued on 09/15/2019 at patient's and his request, knowing the risk versus benefits associated with his disease status e.g. being high risk for recurrence. CT scan of abdomen pelvis done on 09/10/2019 showed no evidence of recurrence of disease. Stable mild splenomegaly, slightly aneurysmal distal infrarenal abdominal aorta measuring 2.7 x 2.9 cm. Small collection along the midline abdominal incision near the umbilicus with small pocket of air suspicious for infected fluid collection Left lower quadrant ileostomy.status post ileostomy reversal done on 12/15/[address] Pruitt at [facility], pathology report showed ostomy site changes Follow-up CT scan of abdomen pelvis done on May 22, 2020 showed interval takedown left lower quadrant ileostomy. No evidence of new or progressive disease. Postoperative changes with anastomosis transverse colon. No abdominal lymphadenopathy. Stable mild splenomegaly., Normal liver. Came for follow-up, denies any specific complaints, no fever chills, no nausea or vomiting, no diarrhea constipation, no melena or hematochezia, no jaundice, no abdominal pain, appetite is good Medications: Aspirin 1 Tablet (of 81 mg) Oral daily, Digoxin 1 Tablet (of 250 mcg) Oral daily, Gabapentin 2 Tablet (of 600 mg) Oral t.i.d., GlipiZIDE 1 Tablet (of 10 mg) Oral b.i.d., Hydrocodone-Acetaminophen 1 Tablet (of 10-325 mg) Oral q 4 to 6 hours PRN, Invokana 1 Tablet (of 300 mg) Oral daily, Januvia 1 Tablet (of 100 mg) Oral daily, Meloxicam 1 Tablet (of 15 mg) Oral daily, Metoprolol Tartrate 1 Tablet (of 25 mg) Oral daily, Mirtazapine 1 Tablet (of 15 mg) Oral daily, Ondansetron HCl (8 mg) Tablet Oral PRN, Pantoprazole Sodium 1 Tablet (of 40 mg) Tablet, enteric coated Oral daily, ProAir HFA 1 Units (of 108 (90 base) mcg/act) Aerosol, solution Inhalation PRN, Simvastatin 1 Tablet (of 20 mg) Oral daily Allergies: No Known Allergies. Review of Systems: Review of Systems is not available for this patient. Vital Signs: Performed on Oct 06, 2020 08:10 Height - 65.00 in Weight - 239.0 lbs (LOW) BSA - 2.13 sq.m BMI - 39.77 (HIGH) Temperature - 97.7 F (LOW) Pulse - 95 /min Respiration - 20 /min BP - 143/74 mm(hg) (HIGH) O2 Sat - 94 % (LOW) Pain - 0 Performance Status: 0 - Fully active, able to carry on all predisease activities without restrictions. (ECOG) Physical Examination: ENMT - No mouth sores, no thrush, no joint, Respiratory - Lungs are clear to auscultation, Cardiovascular - Regular rate and rhythm of heart, Abdomen - Soft, bowel sounds present, Extremities - No visible edema or rash. 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 Macdonald is a 74-year-old gentleman that presented to his primary care provider with a greater than 2 month history of constipation. He was referred to Dr. Donald Hargrove for consultation for evaluation of the constipation with colonoscopy.and underwent colonoscopy on 03/31/2018. The colonoscopy revealed a large rectosigmoid mass extending from 15 cm from the anal verge all the way to the distal sigmoid. There was a biopsy of the proximal ascending colon which revealed polypoid segments of the colonic mucosa showing tubulous adenoma. Mr. Macdonald underwent CT of the chest, abdomen, pelvis on 03/31/2018 which revealed a 6.6 x 5.8 x 9.2 cm mass in sigmoid colon extension to the adjacent fat. It was producing significant narrowing of the lumen of the sigmoid colon. There was noted to be 0.8 cm lymph node adjacent to the mass. There were no other signs of metastatic disease. He did have repeat sigmoid colon evaluation and removal of a polypoid mass. The pathology revealed infiltrating, adenocarcinoma- moderately differentiated. MLH1, MSH2, MSH6, and PMS2 testing show intact nuclear expression. Mr. Macdonald was referred to radiation medical oncology for further assessment. It is been record that he have neoadjuvant concurrent therapy prior to surgical resection. He will most likely require adjuvant chemotherapy following the surgery. He began concurrent therapy on 05/12/2018. His Xeloda dose was 1500 mg twice a day on the days of radiation only. He remained on the Xeloda untill 06/19/2018. CT scan of abdomen pelvis done on 07/21/2018 showed significant reduction in the colorectal mass on 09/09/2018, he underwent laparoscopic descending colostomy formation once realized during laparoscopic evaluation the patient has nonresectable colorectal cancer directly invading the base of the bladder and bilateral pelvic sidewalls. And also underwent repair of incarcerated umbilical hernia in [place] 2. COPD 3. Hyperlipidemia 4. CAD stent replacement in 2004 5. Diabetes 6. Abdominal hernia 7. Total left knee replacement Recently on 09/09/2018, underwent laparoscopic evaluation and found to have nonresectable colorectal cancer directly invading the base of the bladder and bilateral pelvic sidewalls although biopsies from this mass showed chronic inflammation. The role of palliative chemotherapy with FOLFOX was discussed in detail and recommended modified dose FOLFOX ???[address] scan of pelvis. Mr Macdonald began his first cycle of chemotherapy on 10/18/2018. He is tolerating it well thus far. Follow-up CT scan of abdomen pelvis done on 01/05/2019 showed continued decrease in size of sigmoid/rectum tumor. Residual tumor is difficult to measure but reported at a maximum diameter of approximated 1.8 cm. There is a fat plane the urinary bladder and sigmoid tumor. No adenopathy was reported. Small retroperitoneal nodes are less than 1 cm with no new nodes or increase in size of previous notes. No distant metastasis to the adrenals or liver. His spleen is 19.3 cm which is unchanged. At patient's request ,he was referred to Department of colorectal surgery at [facility] for second opinion, patient saw Dr. Sandeep Pruitt. As per patient, surgery with end-to-end anastomosis was possible but he was advised to finish his recommended chemotherapy with FOLFOX prior to surgery. He completed 12 doses of FOLFOX on 03/29/2019. He was then referred back to [facility]. Status post concurrent combined chemoradiation with oral Xeloda till June 2018 followed by systemic chemotherapy with modified dose FOLFOX ???12 the 03/29/2019 followed by open right colectomy, anterior resection with diverting loop ileostomy and partial resection of dome of bladder which showed no invasion. Done on 05/12/2019, final pathology report showed adenocarcinoma, moderately differentiated with extension into pericolic soft tissue to bladder without invasion of bladder T4a, surgical margins free of tumor Bladder muscularis propria with fibrosis and no evidence of malignancy. Adenocarcinoma with extensive necrosis with associated fistula tract into periileal soft tissues and invasion limited to muscularis propria of ileum. Appendix with adenocarcinoma limited to periappendiceal soft tissue and no direct invasion of appendix. Left colon with diverticulum and no evidence of malignancy. 20 lymph nodes examined with no evidence of metastatic disease. discussed with Mr & Mrs Macdonald further treatment options including clinical trials based on guardant 360 results which showed multiple mutation including NRAS,BRAF. and Mr Macdonald declined clinical trial but agreed to try 6 months of Xeloda as recommended by , medical oncologist at [facility].On August 10, 2019 was sterted on Xeloda one thousand milligrams per meter square by mouth twice a day for 2 weeks and repeat every 21 days ???8 cycle, as long as tolerated. We will try this dose for 2 cycles and if tolerated well then will titrate up to 1250 mg/m??? by mouth twice a day 2 weeks on 1 week off. But adjuvant oral Xeloda therapy was discontinued on September 15, 2019 at patient and his 's request, knowing the risk versus benefits associated with his disease status, being high risk for recurrence. And follow-up CT scan of abdomen pelvis done September 10, 2019 showed no evidence of recurrence of disease except stable mild splenomegaly and slightly aneurysmal distal infrarenal abdominal aorta measuring 2.7 x 2.9 cm. Follow-up CT scan of abdomen pelvis done on May 22, 2020 showed interval takedown left lower quadrant ileostomy and stable mild splenomegaly and no evidence of new or progressive disease, postoperative changes seen. Plan: Discussed with patient regarding his labs white blood count 5.5 hemoglobin 14.9 hematocrit 44.9 platelets 127,000 compared to 130,000 on June 06, 2020, CMP within normal limit except potassium 5.3 glucose 172, creatinine 0.8 and CEA 2.2 Clinically, patient doing well with no signs symptom suggestive of recurrence of disease his lab work-up looks in normal range and stable with persistent mild thrombocytopenia. We will continue to monitor and then he will return to clinic in 3 months with CBC CMP and follow-up CT scan of abdomen pelvis. Signed By: Hollis Bautista M.D. <<Signature on File>>
== END 2020-10-06 07:45 | disposition home or self-care (01) ==
LOC: ONCMED 07:47
PROVIDERS: PCP Family Medicine; Visit Provider Internal Medicine Hematology & Oncology
DX: C19 Malignant neoplasm of rectosigmoid junction (principal); Z92.3 Personal history of irradiation; Z92.21 Personal history of antineoplastic chemotherapy; J44.9 Chronic obstructive pulmonary disease, unspecified; E78.5 Hyperlipidemia, unspecified; I25.10 Atherosclerotic heart disease of native coronary artery without angina pectoris; E11.9 Type 2 diabetes mellitus without complications; K46.9 Unspecified abdominal hernia without obstruction or gangrene; Z96.652 Presence of left artificial knee joint
CPT/HCPCS: G0463

== ENCOUNTER 2020-12-29 09:43 | Outpatient (CLI) | payer MEDICARE, SELFPAY ==
--- NOTE | 2020-12-29 09:51 | CT_ITS ---
WS: [id number] CT ABDOMEN AND PELVIS WITH CONTRAST HISTORY: COLON CANCER, MALIGNANT NEOPLASM OF RECTOSIGMOID JUNCTION TECHNIQUE: Imaging performed of the abdomen and pelvis with IV contrast. Single phase imaging of the abdomen. Coronal and sagittal reformats are submitted. All CT scans at [facility] use at least one of these dose optimization techniques: automated exposure control; mA and/or kV adjustment per patient size (includes targeted exams where dose is matched to clinical indication); or iterativ e reconstruction. IV CONTRAST: Omnipaque 300; 95 mL IV. Oral contrast: Yes. DLP: 1089.97 mGycm COMPARISON: 09/10/2019 and 05/22/2020 Lower thorax: Lung bases are clear. Mildly enlarged heart. Coronary artery calcifications. No signifi cant hiatal hernia. Liver/biliary system: Normal size with no metastatic lesions. No bile duct dilatation. Gallbladder: Normal. No gallstones or wall thickening. No pericholecystic fluid. Pancreas: Normal. Spleen: Spleen is enlarged measuring 20 cm in length. Similar to the prior examination. Adrenal glands: Normal. Right kidney: Mild perinephric stranding. No obstruction or solid mass. Left kidney: Mild perinephric stranding. No obstruction or solid mass. Low-attenuation area in the lo wer pole is probably a small cyst. No interval [employer] several prior studies. Aorta: Moderate atherosclerotic plaque with mild ectasia. Lymphadenopathy: Numerous small mesenteric and retroperitoneal lymph nodes. These lymph nodes are les s than a centimeter and have been present on multiple prior examinations with no increase in size or number. Free fluid: None. GI tract: Anastomotic site in the sigmoid demonstrates no recurrent lesions. There is an additional a nastomotic site in the transverse colon. There is increased fecal material but no obstruction or recu rrent mass identified. No increasing soft tissue. Numerous diverticula throughout the sigmoid colon w ith no inflammation. Abdominal wall: Surgical soft tissue scarring at the LEFT ileostomy site. Pelvis: Very mildly prominent prostate gland. Urinary bladder is negative. No lymph nodes or fluid. Bones: L4 anterolisthesis by 4 mm. Mild facet joint arthritis. No fractures. CT/CT abdomen pelvis w con* [id number] IMPRESSION: 1. No evidence for metastatic disease or recurrent neoplasm at the colonic monty stomosis sites. 2. Small mesenteric and retroperitoneal lymph nodes are stable over multiple p rior studies. 3. Sigmoid diverticulosis without diverticulitis. 4. Moderate splenomegaly, unchanged.
[2020-12-29] MEDS: iohexol 300 mg/mL 50 mL Btl PO (09:58)
[2020-12-29 11:12] LABS: Blood Urea Nitrogen 13 mg/dL (8-23)
[2020-12-29] MEDS: iohexol 300 mg/mL 100 mL Btl IV (11:18)
== END 2020-12-29 09:44 | disposition home or self-care (01) ==
LOC: RADWPI 09:46
PROVIDERS: PCP Family Medicine; Visit Provider Internal Medicine Hematology & Oncology
DX: C19 Malignant neoplasm of rectosigmoid junction (principal)
CPT/HCPCS: 74177; 82565; 84520; Q9967

== ENCOUNTER 2021-01-12 08:07 | Outpatient (CLI) | payer MEDICARE, SELFPAY ==
--- NOTE | 2021-01-12 09:17 | ONC FU_ITS ---
Dr. Bautista follow up note Patient: August Macdonald Unit #: [id number]: 1945 Dicatated By: Hollis Bautista M.D.Date of Visit:Jan 12, 2021 Onc Med Follow-up/Prog Note History of Present Illness: Mr. Macdonald is a 74-year-old gentleman that presented to his primary care provider with a greater than 2 month history of constipation. He was referred to Dr. Donald Hargrove for consultation for evaluation of the constipation with colonoscopy and .Underwent colonoscopy on 03/31/2018. The colonoscopy revealed a large rectosigmoid mass extending from 15 cm from the anal verge all the way to the distal sigmoid. There was a biopsy of the proximal ascending colon which revealed polypoid segments of the colonic mucosa showing tubulous adenoma. Mr. Macdonald underwent CT of the chest, abdomen, pelvis on 03/31/2018 which revealed a 6.6 x 5.8 x 9.2 cm mass in sigmoid colon extension to the adjacent fat. It was producing significant narrowing of the lumen of the sigmoid colon. There was noted to be 0.8 cm lymph node adjacent to the mass. There were no other signs of metastatic disease. He did have repeat sigmoid colon evaluation and removal of a polypoid mass. The pathology revealed infiltrating, adenocarcinoma- moderately differentiated. MLH1, MSH2, MSH6, and PMS2 testing show intact nuclear expression. Mr. Macdonald was referred to radiation medical oncology for further assessment. It was recommended that he have neoadjuvant concurrent therapy prior to surgery resection. He would most likely require adjuvant chemotherapy following the surgery He underwent concurrent chemoradiation with radiation sensitizing agent is Xeloda. from 05/12/2018.till 06/19/2018. Mr Macdonald then had laparoscopic descending colostomy formation and repair of incarcerated umbilical hernia on 09/10/2018 , during laproscopy ,found to have nonresectable colorectal cancer directly invading the base of the bladder and bilateral pelvic sidewalls biopsies were obtained from pelvic mass showed reactive fibroinflammatory changes Mr. Macdonald was been offered palliative chemotherapy with modified FOLFOX-6 cycles. Mr. Macdonald began his first cycle of modified FOLFOX on 10/19/2018. Follow-up CT scan from 01/05/2019 continued to show decrease in the size of the sigmoid and rectal tumor. Residual tumor is difficult to measure but reported at a maximum diameter of approximated 1.8 cm. There is a fat plane the urinary bladder and sigmoid tumor. No adenopathy was reported. Small retroperitoneal nodes are less than 1 cm with no new nodes or increase in size of previous notes. No distant metastasis to the adrenals or liver. His spleen was 19.3 cm which was unchanged. Mr Macdonald was referred to colorectal surgery department at [facility] for second opinion. He saw Dr. Sandeep Pruitt , as per patient, he was a candidate for surgery with end-to-end anastomosis but was advised to finish his recommended 12 cycles of chemotherapy with FOLFOX prior to the surgery. Mr Macdonald completed 12 doses of FOLFOX on 03/29/2019. On 05/12/2019, he underwent open right colectomy, anterior resection with the wording loop ileostomy and partial resection of the dome of the bladder and final pathology report showed adenocarcinoma, moderately differentiated with extension into pericolic soft tissue to bladder without invasion of bladder T4 a, clear surgical margins, no bladder involvement and 0 out of 20 positive lymph nodes Mr Macdonald was then referred to GI oncology [facility] for evaluation for clinical trial. He was seen by Dr. Butler on 06/08/2019 as per his evaluation he ordered [employer] [facility], genomic analysis with his tumor and blood (circulating tumor DNA); baseline scans and it CEA and vitamin D and iron profile. Mr Macdonald declined clinical trial participation and has elected a trial of 6 months of Xeloda.Start his first cycle of modified dose Xeloda on 08/10/2019, for 14 days and repeat every 21 days.Adjuvant oral Xeloda therapy was discontinued on 09/15/2019 at patient's and his request, knowing the risk versus benefits associated with his disease status e.g. being high risk for recurrence. CT scan of abdomen pelvis done on 09/10/2019 showed no evidence of recurrence of disease. Stable mild splenomegaly, slightly aneurysmal distal infrarenal abdominal aorta measuring 2.7 x 2.9 cm. Small collection along the midline abdominal incision near the umbilicus with small pocket of air suspicious for infected fluid collection Left lower quadrant ileostomy.status post ileostomy reversal done on 12/15/[address]ru[address] at [facility], pathology report showed ostomy site changes Follow-up CT scan of abdomen pelvis done on May 22, 2020 showed interval takedown left lower quadrant ileostomy. No evidence of new or progressive disease. Postoperative changes with anastomosis transverse colon. No abdominal lymphadenopathy. Stable mild splenomegaly., Normal liver. Follow-up CT scan of abdomen pelvis done on December 29, 2020 showed no evidence of metastatic disease or recurrent neoplasm mild chronic anastomosis sites small mesenteric and retroperitoneal lymph nodes are stable ,sigmoid diverticulosis without diverticulitis, moderate splenomegaly, unchanged Came for follow-up, denies any specific complaints, no fever chills, no nausea or vomiting, no diarrhea constipation, no melena or hematochezia, no hemoptysis hematemesis, no jaundice, no abdominal pain, appetite is good. Medications: Aspirin 1 Tablet (of 81 mg) Oral daily, Digoxin 1 Tablet (of 250 mcg) Oral daily, Farxiga (10 mg) Tablet Oral daily, Gabapentin 2 Tablet (of 600 mg) Oral t.i.d., GlipiZIDE 1 Tablet (of 10 mg) Oral b.i.d., Hydrocodone-Acetaminophen 1 Tablet (of 10-325 mg) Oral q 4 to 6 hours PRN, Januvia 1 Tablet (of 100 mg) Oral daily, Meloxicam 1 Tablet (of 15 mg) Oral daily, MetFORMIN HCl ER (MOD) 1 Tablet (of 1000 mg) Tablet SR 24 HR Oral b.i.d., Metoprolol Tartrate 1 Tablet (of 25 mg) Oral daily, Mirtazapine 1 Tablet (of 15 mg) Oral daily, Ondansetron HCl (8 mg) Tablet Oral PRN, Pantoprazole Sodium 1 Tablet (of 40 mg) Tablet, enteric coated Oral daily, ProAir HFA 1 Units (of 108 (90 base) mcg/act) Aerosol, solution Inhalation PRN, Simvastatin 1 Tablet (of 20 mg) Oral daily Allergies: No Known Allergies. Review of Systems: Review of Systems is not available for this patient. Vital Signs: Performed on Jan 12, 2021 08:26 Height - 65.00 in Weight - 241.6 lbs (HIGH) BSA - 2.14 sq.m BMI - 40.20 (HIGH) Temperature - 97.2 F (LOW) Pulse - 93 /min Respiration - 17 /min BP - 134/67 mm(hg) O2 Sat - 90 % (LOW) Pain - 0 Fatigue - 0 Performance Status: 1 - No physically strenuous activity, but ambulatory and able to carry out light or sedentary work (e.g. office work, light house work). (ECOG) Physical Examination: ENMT - No mouth sores, no thrush, no jaundice, Respiratory - Lungs are clear to auscultation, Cardiovascular - Regular rate and rhythm of heart, Abdomen - No bowel sounds present, Extremities - No visible edema. Lab/Imaging: Test performed on Jan 09, 2021 08:40 Glucose 192 mg/dL BUN 15 mg/dL Creatinine 0.8 mg/dL Cr Clearance (Est) 126.10 mL/min Sodium 138.0 mmol/L Potassium 5.10 mmol/L Chloride 101.0 mmol/L CO2 30 mmol/L Calcium 9.50 mg/dL Protein, Total 6.90 g/dL Albumin 3.6 g/dL Globulin 3.2 g/dL A/G Ratio 0.5 Absolute Value Bilirubin, Total 0.5 mg/dL Alkaline Phosphatase 129 IU/L AST (SGOT) 37.0 IU/L ALT (SGPT) 24 IU/L WBC 5.6 10^9/L RBC 4.45 10^12/L HGB 14.5 g/dL HCT 44.9 % MCV 101.0 fl MCH 32.7 pg MCHC 32.4 g/dL RDW 12.7 % Platelet Count 111 10^9/L MPV 9.4 fL CEA 2.4 ng/mL Test performed on Oct 04, 2020 12:39 BUN/Creatinine Ratio 21 Absolute Value Impression: 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 Macdonald is a 74-year-old gentleman that presented to his primary care provider with a greater than 2 month history of constipation. He was referred to Dr. Donald Hargrove for consultation for evaluation of the constipation with colonoscopy.and underwent colonoscopy on 03/31/2018. The colonoscopy revealed a large rectosigmoid mass extending from 15 cm from the anal verge all the way to the distal sigmoid. There was a biopsy of the proximal ascending colon which revealed polypoid segments of the colonic mucosa showing tubulous adenoma. Mr. Macdonald underwent CT of the chest, abdomen, pelvis on 03/31/2018 which revealed a 6.6 x 5.8 x 9.2 cm mass in sigmoid colon extension to the adjacent fat. It was producing significant narrowing of the lumen of the sigmoid colon. There was noted to be 0.8 cm lymph node adjacent to the mass. There were no other signs of metastatic disease. He did have repeat sigmoid colon evaluation and removal of a polypoid mass. The pathology revealed infiltrating, adenocarcinoma- moderately differentiated. MLH1, MSH2, MSH6, and PMS2 testing show intact nuclear expression. Mr. Macdonald was referred to radiation medical oncology for further assessment. It is been record that he have neoadjuvant concurrent therapy prior to surgical resection. He will most likely require adjuvant chemotherapy following the surgery. He began concurrent therapy on 05/12/2018. His Xeloda dose was 1500 mg twice a day on the days of radiation only. He remained on the Xeloda untill 06/19/2018. CT scan of abdomen pelvis done on 07/21/2018 showed significant reduction in the colorectal mass on 09/09/2018, he underwent laparoscopic descending colostomy formation once realized during laparoscopic evaluation the patient has nonresectable colorectal cancer directly invading the base of the bladder and bilateral pelvic sidewalls. And also underwent repair of incarcerated umbilical hernia in [place] 2. COPD 3. Hyperlipidemia 4. CAD stent replacement in 2004 5. Diabetes 6. Abdominal hernia 7. Total left knee replacement Recently on 09/09/2018, underwent laparoscopic evaluation and found to have nonresectable colorectal cancer directly invading the base of the bladder and bilateral pelvic sidewalls although biopsies from this mass showed chronic inflammation. The role of palliative chemotherapy with FOLFOX was discussed in detail and recommended modified dose FOLFOX ???[address] scan of pelvis. Mr Macdonald began his first cycle of chemotherapy on 10/18/2018. He is tolerating it well thus far. Follow-up CT scan of abdomen pelvis done on 01/05/2019 showed continued decrease in size of sigmoid/rectum tumor. Residual tumor is difficult to measure but reported at a maximum diameter of approximated 1.8 cm. There is a fat plane the urinary bladder and sigmoid tumor. No adenopathy was reported. Small retroperitoneal nodes are less than 1 cm with no new nodes or increase in size of previous notes. No distant metastasis to the adrenals or liver. His spleen is 19.3 cm which is unchanged. At patient's request ,he was referred to Department of colorectal surgery at [facility] for second opinion, patient saw Dr. Sandeep Pruitt. As per patient, surgery with end-to-end anastomosis was possible but he was advised to finish his recommended chemotherapy with FOLFOX prior to surgery. He completed 12 doses of FOLFOX on 03/29/2019. He was then referred back to [facility]. Status post concurrent combined chemoradiation with oral Xeloda till June 2018 followed by systemic chemotherapy with modified dose FOLFOX ???12 the 03/29/2019 followed by open right colectomy, anterior resection with diverting loop ileostomy and partial resection of dome of bladder which showed no invasion. Done on 05/12/2019, final pathology report showed adenocarcinoma, moderately differentiated with extension into pericolic soft tissue to bladder without invasion of bladder T4a, surgical margins free of tumor Bladder muscularis propria with fibrosis and no evidence of malignancy. Adenocarcinoma with extensive necrosis with associated fistula tract into periileal soft tissues and invasion limited to muscularis propria of ileum. Appendix with adenocarcinoma limited to periappendiceal soft tissue and no direct invasion of appendix. Left colon with diverticulum and no evidence of malignancy. 20 lymph nodes examined with no evidence of metastatic disease. discussed with Mr & Mrs Macdonald further treatment options including clinical trials based on guardant 360 results which showed multiple mutation including NRAS,BRAF. and Mr Macdonald declined clinical trial but agreed to try 6 months of Xeloda as recommended by , medical oncologist at [facility].On August 10, 2019 was sterted on Xeloda one thousand milligrams per meter square by mouth twice a day for 2 weeks and repeat every 21 days ???8 cycle, as long as tolerated. We will try this dose for 2 cycles and if tolerated well then will titrate up to 1250 mg/m??? by mouth twice a day 2 weeks on 1 week off. But adjuvant oral Xeloda therapy was discontinued on September 15, 2019 at patient and his 's request, knowing the risk versus benefits associated with his disease status, being high risk for recurrence. And follow-up CT scan of abdomen pelvis done September 10, 2019 showed no evidence of recurrence of disease except stable mild splenomegaly and slightly aneurysmal distal infrarenal abdominal aorta measuring 2.7 x 2.9 cm. Follow-up CT scan of abdomen pelvis done on May 22, 2020 showed interval takedown left lower quadrant ileostomy and stable mild splenomegaly and no evidence of new or progressive disease, postoperative changes seen. Follow-up CT scan done on December 29, 2020 showed no evidence of metastatic disease or recurrent neoplasm at colonic anastomosis site. Small mesenteric and retroperitoneal lymph nodes are stable. Moderate splenomegaly, unchanged Plan: Discussed with patient regarding his labs white blood count 5.6 hemoglobin 14.5 hematocrit 44.9 platelets 111,000, CMP within normal limit CEA 2.4 and follow-up CT scan of abdomen pelvis done recently showed no evidence of recurrence of disease Clinically, patient is doing well with no new signs symptom suggestive of recurrence of disease his lab work-up and follow-up CT scan of abdomen pelvis shows no recurrence of disease, will continue to monitor and he will return to clinic in 4 months with CBC CMP CEA and follow-up CT scan of abdomen pelvis and will also request Dr. Hargrove for follow-up colonoscopy. Signed By: Hollis Bautista M.D. <<Signature on File>>
== END 2021-01-12 08:08 | disposition home or self-care (01) ==
LOC: ONCMED 08:10
PROVIDERS: PCP Family Medicine; Visit Provider Internal Medicine Hematology & Oncology
DX: Z08 Encounter for follow-up examination after completed treatment for malignant neoplasm (principal); Z85.038 Personal history of other malignant neoplasm of large intestine; Z90.49 Acquired absence of other specified parts of digestive tract; Z92.21 Personal history of antineoplastic chemotherapy
CPT/HCPCS: 99214

== ENCOUNTER 2021-04-30 09:20 | Outpatient (CLI) | payer MEDICARE, SELFPAY ==
--- NOTE | 2021-04-30 | CT_ITS ---
WS: [id number] CT ABDOMEN PELVIS TECHNIQUE: Contrast-enhanced CT of the abdomen and pelvis with coronal and sagittal reformatted image s. CLINICAL INFORMATION: COLON CANCER, F/U PREVIOUS CT SCAN COMPARISON: CT December 29, 2020 DLP: 1876.[address] scans at [facility] use at least one of these dose optimization techniques: automat ed exposure control; mA and/or kV adjustment per patient size (includes targeted exams where dose is matched to clinical indication); or iterative reconstruction. FINDINGS: Slight subsegmental atelectasis in the lung bases. Hepatomegaly. Diffuse fatty infiltration of the li guilherme. Splenomegaly. Normal portal vein and splenic vein. Mild fatty atrophy of the pancreas. Small eso phageal hiatal hernia. Sigmoid diverticulosis. No evidence of acute diverticulitis. Prior postoperative changes transverse c olon and sigmoid colon with partial colectomy. Adrenal glands are normal. Normal renal parenchymal en hancement. No hydronephrosis. Normal caliber abdominal aorta. Slightly ectatic distal abdominal aorta measuring 2.4 x 2.7 CM. Slight anterolisthesis L4 on L5. Prior left ileostomy. CT/CT abdomen pelvis w con* [id number] IMPRESSION: 1. Prior postoperative changes sigmoid colon and transverse colon with partial colectomy. 2. No evidence of recurrent or metastatic disease. 3. No adenopathy in the abdomen or pelvis. 4. Hepatomegaly and splenomegaly. Diffuse fatty infiltration liver. 5. No other significant changes from previous.
[2021-04-30 09:59] LABS: Basophils % 0.6 %; Eosinophils # 0.1 10^3/uL (0.0-0.8); Eosinophils % 0.8 %; Hematocrit 46.6 % (42.0-52.0); Hemoglobin 15.4 g/dL (11.7-16.6); Lymphocytes # 0.9 10^3/uL (0.8-4.8); Lymphocytes % 13.9 %; Mean Corpuscular Hemoglobin 31.4 pg (28.0-34.0); Mean Corpuscular Volume 95.1 fL (80-94); Monocytes # 0.8 10^3/uL (0.2-0.9); Monocytes % 11.7 %; Neutrophils # 4.79 10^3/uL (1.8-7.7); Neutrophils % 72.1 %; Nucleated Red Blood Cells % 0 %; Platelet Count 136 10^3/cmm (130-400); Red Cell Distribution Width 13.2 % (12.1-15.1); White Blood Count 6.6 10^3/uL (4.0-10.0)
[2021-04-30 10:21] LABS: Carcinoembryonic Antigen 4.7 ng/mL (0.0-4.7)
[2021-04-30 10:32] LABS: Alanine Aminotransferase 23 U/L (0-41); Albumin Level 3.9 g/dL (3.5-5.2); Alkaline Phosphatase 156 IU/L (40-130); Anion Gap 16.7 (5-19); Aspartate Amino Transferase 25 U/L (0-40); Blood Urea Nitrogen 13 mg/dL (8-23); Calcium 9.6 mg/dL (8.5-10.5); Carbon Dioxide 27 mmol/L (22-29); Chloride 96 mmol/L (98-107); Globulin 3.4 g/dL (1.3-4.6); Glucose 164 mg/dL (65-115); Osmolality Calculated 284 mOsm/kg (285-295); Potassium 4.7 mmol/L (3.5-5.1); Sodium 135 mmol/L (136-145); Total Bilirubin 0.5 mg/dL (0.15-1.2); Total Protein 7.3 g/dL (6.6-8.7)
[2021-04-30] MEDS: iohexol 300 mg/mL 100 mL Btl IV (11:34)
== END 2021-04-30 09:21 | disposition home or self-care (01) ==
LOC: ONCMED 09:22
PROVIDERS: PCP Family Medicine; Visit Provider Internal Medicine Hematology & Oncology
DX: Z85.038 Personal history of other malignant neoplasm of large intestine (principal)
CPT/HCPCS: 36415; 74177; 80053; 82378; 85025; Q9967

== ENCOUNTER 2021-05-03 06:01 | Outpatient (CLI) | payer MEDICARE, SELFPAY ==
--- NOTE | 2021-05-04 13:07 | ONC FU_ITS ---
Dr. Bautista follow up note Patient: August Macdonald Unit #: [id number]: 1945 Dicatated By: Hollis Bautista M.D.Date of Visit:May 03, 2021 Onc Med Follow-up/Prog Note History of Present Illness: Mr. Macdonald is a 75-year-old gentleman that presented to his primary care provider with a greater than 2 month history of constipation. He was referred to Dr. Donald Hargrove for consultation for evaluation of the constipation with colonoscopy and .Underwent colonoscopy on 03/31/2018. The colonoscopy revealed a large rectosigmoid mass extending from 15 cm from the anal verge all the way to the distal sigmoid. There was a biopsy of the proximal ascending colon which revealed polypoid segments of the colonic mucosa showing tubulous adenoma. Mr. Macdonald underwent CT of the chest, abdomen, pelvis on 03/31/2018 which revealed a 6.6 x 5.8 x 9.2 cm mass in sigmoid colon extension to the adjacent fat. It was producing significant narrowing of the lumen of the sigmoid colon. There was noted to be 0.8 cm lymph node adjacent to the mass. There were no other signs of metastatic disease. He did have repeat sigmoid colon evaluation and removal of a polypoid mass. The pathology revealed infiltrating, adenocarcinoma- moderately differentiated. MLH1, MSH2, MSH6, and PMS2 testing show intact nuclear expression. Mr. Macdonald was referred to radiation medical oncology for further assessment. It was recommended that he have neoadjuvant concurrent therapy prior to surgery resection. He would most likely require adjuvant chemotherapy following the surgery He underwent concurrent chemoradiation with radiation sensitizing agent is Xeloda. from 05/12/2018.till 06/19/2018. Mr Macdonald then had laparoscopic descending colostomy formation and repair of incarcerated umbilical hernia on 09/10/2018 , during laproscopy ,found to have nonresectable colorectal cancer directly invading the base of the bladder and bilateral pelvic sidewalls biopsies were obtained from pelvic mass showed reactive fibroinflammatory changes Mr. Macdonald was been offered palliative chemotherapy with modified FOLFOX-6 cycles. Mr. Macdonald began his first cycle of modified FOLFOX on 10/19/2018. Follow-up CT scan from 01/05/2019 continued to show decrease in the size of the sigmoid and rectal tumor. Residual tumor is difficult to measure but reported at a maximum diameter of approximated 1.8 cm. There is a fat plane the urinary bladder and sigmoid tumor. No adenopathy was reported. Small retroperitoneal nodes are less than 1 cm with no new nodes or increase in size of previous notes. No distant metastasis to the adrenals or liver. His spleen was 19.3 cm which was unchanged. Mr Macdonald was referred to colorectal surgery department at [facility] for second opinion. He saw Dr. Sandeep Pruitt , as per patient, he was a candidate for surgery with end-to-end anastomosis but was advised to finish his recommended 12 cycles of chemotherapy with FOLFOX prior to the surgery. Mr Macdonald completed 12 doses of FOLFOX on 03/29/2019. On 05/12/2019, he underwent open right colectomy, anterior resection with the wording loop ileostomy and partial resection of the dome of the bladder and final pathology report showed adenocarcinoma, moderately differentiated with extension into pericolic soft tissue to bladder without invasion of bladder T4 a, clear surgical margins, no bladder involvement and 0 out of 20 positive lymph nodes Mr Macdonald was then referred to GI oncology [facility] for evaluation for clinical trial. He was seen by Dr. Butler on 06/08/2019 as per his evaluation he ordered [employer], genomic analysis with his tumor and blood (circulating tumor DNA); baseline scans and it CEA and vitamin D and iron profile. Mr Macdonald declined clinical trial participation and has elected a trial of 6 months of Xeloda.Start his first cycle of modified dose Xeloda on 08/10/2019, for 14 days and repeat every 21 days.Adjuvant oral Xeloda therapy was discontinued on 09/15/2019 at patient's and his request, knowing the risk versus benefits associated with his disease status e.g. being high risk for recurrence. CT scan of abdomen pelvis done on 09/10/2019 showed no evidence of recurrence of disease. Stable mild splenomegaly, slightly aneurysmal distal infrarenal abdominal aorta measuring 2.7 x 2.9 cm. Small collection along the midline abdominal incision near the umbilicus with small pocket of air suspicious for infected fluid collection Left lower quadrant ileostomy.status post ileostomy reversal done on 12/15/[address] Pruitt at [facility], pathology report showed ostomy site changes Follow-up CT scan of abdomen pelvis done on May 22, 2020 showed interval takedown left lower quadrant ileostomy. No evidence of new or progressive disease. Postoperative changes with anastomosis transverse colon. No abdominal lymphadenopathy. Stable mild splenomegaly., Normal liver. Follow-up CT scan of abdomen pelvis done on December 29, 2020 showed no evidence of metastatic disease or recurrent neoplasm mild chronic anastomosis sites small mesenteric and retroperitoneal lymph nodes are stable ,sigmoid diverticulosis without diverticulitis, moderate splenomegaly, unchanged Follow-up CT scan of abdomen pelvis done on April 30, 2021 showed no evidence of recurrent or metastatic disease, postoperative changes in sigmoid colon/transverse colon Hepatomegaly and splenomegaly, diffuse fatty infiltration of liver Colonoscopy done on February 18, 2021 showed desmoplastic changes in large bowel, as per patient biopsies were obtained and no abnormality seen Came for follow-up, denies any specific complaints, no fever chills, no nausea or vomiting, no diarrhea constipation, no abdominal pain, no melena or hematochezia, no jaundice, no weight loss, appetite is good Medications: Aspirin 1 Tablet (of 81 mg) Oral daily, Digoxin 1 Tablet (of 250 mcg) Oral daily, Farxiga (10 mg) Tablet Oral daily, Gabapentin 2 Tablet (of 600 mg) Oral t.i.d., GlipiZIDE 1 Tablet (of 10 mg) Oral b.i.d., Hydrocodone-Acetaminophen 1 Tablet (of 10-325 mg) Oral q 4 to 6 hours PRN, Januvia 1 Tablet (of 100 mg) Oral daily, Meloxicam 1 Tablet (of 15 mg) Oral daily, MetFORMIN HCl ER (MOD) 1 Tablet (of 1000 mg) Tablet SR 24 HR Oral b.i.d., Metoprolol Tartrate 1 Tablet (of 25 mg) Oral daily, Mirtazapine 1 Tablet (of 15 mg) Oral daily, Ondansetron HCl (8 mg) Tablet Oral PRN, Pantoprazole Sodium 1 Tablet (of 40 mg) Tablet, enteric coated Oral daily, ProAir HFA 1 Units (of 108 (90 base) mcg/act) Aerosol, solution Inhalation PRN, Simvastatin 1 Tablet (of 20 mg) Oral daily Allergies: No Known Allergies. Review of Systems: Review of Systems is not available for this patient. Vital Signs: Performed on May 03, 2021 09:13 Height - 65.00 in Weight - 240.6 lbs (LOW) BSA - 2.14 sq.m BMI - 40.04 (HIGH) Temperature - 97.0 F (LOW) Pulse - 90 /min Respiration - 17 /min BP - 112/65 mm(hg) O2 Sat - 91 % (LOW) Pain - 0 Performance Status: 0 - Fully active, able to carry on all predisease activities without restrictions. (ECOG) Physical Examination: ENMT - No mouth sores, no thrush, no jaundice, Respiratory - Lungs are clear to auscultation, Cardiovascular - Regular rate and rhythm of heart, Abdomen - Soft, bowel sounds present, Extremities - No visible edema. 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 Macdonald is a 75-year-old gentleman that presented to his primary care provider with a greater than 2 month history of constipation. He was referred to Dr. Donald Hargrove for consultation for evaluation of the constipation with colonoscopy.and underwent colonoscopy on 03/31/2018. The colonoscopy revealed a large rectosigmoid mass extending from 15 cm from the anal verge all the way to the distal sigmoid. There was a biopsy of the proximal ascending colon which revealed polypoid segments of the colonic mucosa showing tubulous adenoma. Mr. Macdonald underwent CT of the chest, abdomen, pelvis on 03/31/2018 which revealed a 6.6 x 5.8 x 9.2 cm mass in sigmoid colon extension to the adjacent fat. It was producing significant narrowing of the lumen of the sigmoid colon. There was noted to be 0.8 cm lymph node adjacent to the mass. There were no other signs of metastatic disease. He did have repeat sigmoid colon evaluation and removal of a polypoid mass. The pathology revealed infiltrating, adenocarcinoma- moderately differentiated. MLH1, MSH2, MSH6, and PMS2 testing show intact nuclear expression. Mr. Macdonald was referred to radiation medical oncology for further assessment. It is been record that he have neoadjuvant concurrent therapy prior to surgical resection. He will most likely require adjuvant chemotherapy following the surgery. He began concurrent therapy on 05/12/2018. His Xeloda dose was 1500 mg twice a day on the days of radiation only. He remained on the Xeloda untill 06/19/2018. CT scan of abdomen pelvis done on 07/21/2018 showed significant reduction in the colorectal mass on 09/09/2018, he underwent laparoscopic descending colostomy formation once realized during laparoscopic evaluation the patient has nonresectable colorectal cancer directly invading the base of the bladder and bilateral pelvic sidewalls. And also underwent repair of incarcerated umbilical hernia in [place] 2. COPD 3. Hyperlipidemia 4. CAD stent replacement in 2004 5. Diabetes 6. Abdominal hernia 7. Total left knee replacement Recently on 09/09/2018, underwent laparoscopic evaluation and found to have nonresectable colorectal cancer directly invading the base of the bladder and bilateral pelvic sidewalls although biopsies from this mass showed chronic inflammation. The role of palliative chemotherapy with FOLFOX was discussed in detail and recommended modified dose FOLFOX ???[address] scan of pelvis. Mr Macdonald began his first cycle of chemotherapy on 10/18/2018. He is tolerating it well thus far. Follow-up CT scan of abdomen pelvis done on 01/05/2019 showed continued decrease in size of sigmoid/rectum tumor. Residual tumor is difficult to measure but reported at a maximum diameter of approximated 1.8 cm. There is a fat plane the urinary bladder and sigmoid tumor. No adenopathy was reported. Small retroperitoneal nodes are less than 1 cm with no new nodes or increase in size of previous notes. No distant metastasis to the adrenals or liver. His spleen is 19.3 cm which is unchanged. At patient's request ,he was referred to Department of colorectal surgery at [facility] for second opinion, patient saw Dr. Sandeep Pruitt. As per patient, surgery with end-to-end anastomosis was possible but he was advised to finish his recommended chemotherapy with FOLFOX prior to surgery. He completed 12 doses of FOLFOX on 03/29/2019. He was then referred back to [facility]. Status post concurrent combined chemoradiation with oral Xeloda till June 2018 followed by systemic chemotherapy with modified dose FOLFOX ???12 the 03/29/2019 followed by open right colectomy, anterior resection with diverting loop ileostomy and partial resection of dome of bladder which showed no invasion. Done on 05/12/2019, final pathology report showed adenocarcinoma, moderately differentiated with extension into pericolic soft tissue to bladder without invasion of bladder T4a, surgical margins free of tumor Bladder muscularis propria with fibrosis and no evidence of malignancy. Adenocarcinoma with extensive necrosis with associated fistula tract into periileal soft tissues and invasion limited to muscularis propria of ileum. Appendix with adenocarcinoma limited to periappendiceal soft tissue and no direct invasion of appendix. Left colon with diverticulum and no evidence of malignancy. 20 lymph nodes examined with no evidence of metastatic disease. discussed with Mr & Mrs Macdonald further treatment options including clinical trials based on guardant 360 results which showed multiple mutation including NRAS,BRAF. and Mr Macdonald declined clinical trial but agreed to try 6 months of Xeloda as recommended by , medical oncologist at [facility].On August 10, 2019 was sterted on Xeloda one thousand milligrams per meter square by mouth twice a day for 2 weeks and repeat every 21 days ???8 cycle, as long as tolerated. We will try this dose for 2 cycles and if tolerated well then will titrate up to 1250 mg/m??? by mouth twice a day 2 weeks on 1 week off. But adjuvant oral Xeloda therapy was discontinued on September 15, 2019 at patient and his 's request, knowing the risk versus benefits associated with his disease status, being high risk for recurrence. And follow-up CT scan of abdomen pelvis done September 10, 2019 showed no evidence of recurrence of disease except stable mild splenomegaly and slightly aneurysmal distal infrarenal abdominal aorta measuring 2.7 x 2.9 cm. Follow-up CT scan of abdomen pelvis done on May 22, 2020 showed interval takedown left lower quadrant ileostomy and stable mild splenomegaly and no evidence of new or progressive disease, postoperative changes seen. Follow-up CT scan done on December 29, 2020 showed no evidence of metastatic disease or recurrent neoplasm at colonic anastomosis site. Small mesenteric and retroperitoneal lymph nodes are stable. Moderate splenomegaly, unchanged Follow-up CT scan of abdomen pelvis done on April 30, 2021 shows no evidence of recurrence or metastatic disease. Postop changes in sigmoid colon/transverse colon. Persistent hepatosplenomegaly but stable, diffuse fatty infiltration of liver Colonoscopy done on February 20, 2021 showed no evidence of neoplastic recurrence but gastroplasty changes in the large bowel, biopsy was obtained, as per patient it was benign. Plan: Discussed with patient regarding his labs white blood count 6.6 hemoglobin 15.4 hematocrit 44.6 platelets 236,000 CMP within normal limit except glucose 164 and CEA 4.[address] scan of abdomen which showed no evidence of recurrence of disease but persistent hepatosplenomegaly and colonoscopy report Clinically, patient has no signs symptom suggestive of recurrence of disease which is confirmed with follow-up CT scan of abdomen pelvis as well as colonoscopy done recently, his follow-up lab work-up is within normal range but mildly elevated CEA still in normal range, will continue to monitor and patient return to clinic in 6 months with CBC CMP and CEA in the meantime he will continue monthly port flush Signed By: Hollis Bautista M.D. <<Signature on File>>
== END 2021-05-03 06:02 | disposition home or self-care (01) ==
LOC: ONCMED 06:02
PROVIDERS: PCP Family Medicine; Visit Provider Internal Medicine Hematology & Oncology
DX: Z45.2 Encounter for adjustment and management of vascular access device (principal)
CPT/HCPCS: 96523; 99214

== ENCOUNTER 2021-11-07 08:54 | Outpatient (CLI) | payer MEDICARE, SELFPAY ==
--- NOTE | 2021-11-07 16:11 | ONC FU_ITS ---
Dr. Bautista follow up note Patient: August Macdonald Unit #: [id number]: 1945 Dicatated By: Hollis Bautista M.D.Date of Visit:Nov 07, 2021 Onc Med Follow-up/Prog Note History of Present Illness: Mr. Macdonald is a 76-year-old gentleman that presented to his primary care provider with a greater than 2 month history of constipation. He was referred to Dr. Donald Hargrove for consultation for evaluation of the constipation with colonoscopy and .Underwent colonoscopy on 03/31/2018. The colonoscopy revealed a large rectosigmoid mass extending from 15 cm from the anal verge all the way to the distal sigmoid. There was a biopsy of the proximal ascending colon which revealed polypoid segments of the colonic mucosa showing tubulous adenoma. Mr. Macdonald underwent CT of the chest, abdomen, pelvis on 03/31/2018 which revealed a 6.6 x 5.8 x 9.2 cm mass in sigmoid colon extension to the adjacent fat. It was producing significant narrowing of the lumen of the sigmoid colon. There was noted to be 0.8 cm lymph node adjacent to the mass. There were no other signs of metastatic disease. He did have repeat sigmoid colon evaluation and removal of a polypoid mass. The pathology revealed infiltrating, adenocarcinoma- moderately differentiated. MLH1, MSH2, MSH6, and PMS2 testing show intact nuclear expression. Mr. Macdonald was referred to radiation medical oncology for further assessment. It was recommended that he have neoadjuvant concurrent therapy prior to surgery resection. He would most likely require adjuvant chemotherapy following the surgery He underwent concurrent chemoradiation with radiation sensitizing agent is Xeloda. from 05/12/2018.till 06/19/2018. Mr Macdonald then had laparoscopic descending colostomy formation and repair of incarcerated umbilical hernia on 09/10/2018 , during laproscopy ,found to have nonresectable colorectal cancer directly invading the base of the bladder and bilateral pelvic sidewalls biopsies were obtained from pelvic mass showed reactive fibroinflammatory changes Mr. Macdonald was been offered palliative chemotherapy with modified FOLFOX-6 cycles. Mr. Macdonald began his first cycle of modified FOLFOX on 10/19/2018. Follow-up CT scan from 01/05/2019 continued to show decrease in the size of the sigmoid and rectal tumor. Residual tumor is difficult to measure but reported at a maximum diameter of approximated 1.8 cm. There is a fat plane the urinary bladder and sigmoid tumor. No adenopathy was reported. Small retroperitoneal nodes are less than 1 cm with no new nodes or increase in size of previous notes. No distant metastasis to the adrenals or liver. His spleen was 19.3 cm which was unchanged. Mr Macdonald was referred to colorectal surgery department at [facility] for second opinion. He saw Dr. Sandeep Pruitt , as per patient, he was a candidate for surgery with end-to-end anastomosis but was advised to finish his recommended 12 cycles of chemotherapy with FOLFOX prior to the surgery. Mr Macdonald completed 12 doses of FOLFOX on 03/29/2019. On 05/12/2019, he underwent open right colectomy, anterior resection with the wording loop ileostomy and partial resection of the dome of the bladder and final pathology report showed adenocarcinoma, moderately differentiated with extension into pericolic soft tissue to bladder without invasion of bladder T4 a, clear surgical margins, no bladder involvement and 0 out of 20 positive lymph nodes Mr Macdonald was then referred to GI oncology [facility] for evaluation for clinical trial. He was seen by Dr. Butler on 06/08/2019 as per his evaluation he ordered [employer] and [employer], genomic analysis with his tumor and blood (circulating tumor DNA); baseline scans and it CEA and vitamin D and iron profile. Mr Macdonald declined clinical trial participation and has elected a trial of 6 months of Xeloda.Start his first cycle of modified dose Xeloda on 08/10/2019, for 14 days and repeat every 21 days.Adjuvant oral Xeloda therapy was discontinued on 09/15/2019 at patient's and his request, knowing the risk versus benefits associated with his disease status e.g. being high risk for recurrence. CT scan of abdomen pelvis done on 09/10/2019 showed no evidence of recurrence of disease. Stable mild splenomegaly, slightly aneurysmal distal infrarenal abdominal aorta measuring 2.7 x 2.9 cm. Small collection along the midline abdominal incision near the umbilicus with small pocket of air suspicious for infected fluid collection Left lower quadrant ileostomy.status post ileostomy reversal done on 12/15/[address] Pruitt at [facility], pathology report showed ostomy site changes Follow-up CT scan of abdomen pelvis done on May 22, 2020 showed interval takedown left lower quadrant ileostomy. No evidence of new or progressive disease. Postoperative changes with anastomosis transverse colon. No abdominal lymphadenopathy. Stable mild splenomegaly., Normal liver. Follow-up CT scan of abdomen pelvis done on December 29, 2020 showed no evidence of metastatic disease or recurrent neoplasm mild chronic anastomosis sites small mesenteric and retroperitoneal lymph nodes are stable ,sigmoid diverticulosis without diverticulitis, moderate splenomegaly, unchanged Follow-up CT scan of abdomen pelvis done on April 30, 2021 showed no evidence of recurrent or metastatic disease, postoperative changes in sigmoid colon/transverse colon Hepatomegaly and splenomegaly, diffuse fatty infiltration of liver Colonoscopy done on February 18, 2021 showed desmoplastic changes in large bowel, as per patient biopsies were obtained and no abnormality seen Came for follow-up, denies any specific complaints, no fever chills, no nausea or vomiting, no diarrhea or constipation, no abdominal pain, no jaundice, no shortness of breath or palpitation Medications: Aspirin 1 Tablet (of 81 mg) Oral daily, Digoxin 1 Tablet (of 250 mcg) Oral daily, Farxiga (10 mg) Tablet Oral daily, Gabapentin 2 Tablet (of 600 mg) Oral t.i.d., GlipiZIDE 1 Tablet (of 10 mg) Oral b.i.d., Hydrocodone-Acetaminophen 1 Tablet (of 10-325 mg) Oral q 4 to 6 hours PRN, Januvia 1 Tablet (of 100 mg) Oral daily, Meloxicam 1 Tablet (of 15 mg) Oral daily, MetFORMIN HCl ER (MOD) 1 Tablet (of 1000 mg) Tablet SR 24 HR Oral b.i.d., Metoprolol Tartrate 1 Tablet (of 25 mg) Oral daily, Mirtazapine 1 Tablet (of 15 mg) Oral daily, Ondansetron HCl (8 mg) Tablet Oral PRN, Pantoprazole Sodium 1 Tablet (of 40 mg) Tablet, enteric coated Oral daily, ProAir HFA 1 Units (of 108 (90 base) mcg/act) Aerosol, solution Inhalation PRN, Simvastatin 1 Tablet (of 20 mg) Oral daily Allergies: No Known Allergies. Review of Systems: Review of Systems is not available for this patient. Vital Signs: Performed on Nov 07, 2021 09:14 Height - 65.00 in Weight - 247.0 lbs (HIGH) BSA - 2.16 sq.m BMI - 41.10 (HIGH) Temperature - 97.7 F (LOW) Pulse - 82 /min Respiration - 20 /min BP - 141/71 mm(hg) (HIGH) O2 Sat - 92 % (LOW) Pain - 0 Fatigue - 3 Performance Status: 0 - Fully active, able to carry on all predisease activities without restrictions. (ECOG) Physical Examination: ENMT - No mouth sores, no thrush, no jaundice, Respiratory - Lungs are clear to auscultation, Cardiovascular - Regular rate and rhythm of heart, Abdomen - Soft, bowel sounds present, Extremities - No visible edema. Lab/Imaging: Test performed on Nov 01, 2021 14:41 Glucose 195 mg/dL BUN 24 mg/dL Creatinine 1 mg/dL Cr Clearance (Est) 102.7000 mL/min Sodium 134 mmol/L Potassium 4.9 mmol/L Chloride 102 mmol/L CO2 24 mmol/L Calcium 9.5 mg/dL Protein, Total 7.1 g/dL Albumin 3.8 g/dL Globulin 3 g/dL Bilirubin, Total 0.3 mg/dL Alkaline Phosphatase 169 International Units/L AST (SGOT) 29 International Units/L ALT (SGPT) 21 International Units/L WBC 4.9 10^9/L RBC 4.22 10^12/L HGB 13.5 g/dL HCT 41.7 % MCV 99 fl MCH 32 pg MCHC 32.4 g/dL RDW 13.2 % Platelet Count 92 10^9/L Neutrophils (Gran) 3.63 10^9/L Lymphocytes 0.64 10^9/L Monocytes 0.52 10^9/L Eosinophils 0.06 10^9/L Basophils 0.02 10^9/L CEA 1.9 ng/mL Impression: 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 Macdonald is a 75-year-old gentleman that presented to his primary care provider with a greater than 2 month history of constipation. He was referred to Dr. Donald Hargrove for consultation for evaluation of the constipation with colonoscopy.and underwent colonoscopy on 03/31/2018. The colonoscopy revealed a large rectosigmoid mass extending from 15 cm from the anal verge all the way to the distal sigmoid. There was a biopsy of the proximal ascending colon which revealed polypoid segments of the colonic mucosa showing tubulous adenoma. Mr. Macdonald underwent CT of the chest, abdomen, pelvis on 03/31/2018 which revealed a 6.6 x 5.8 x 9.2 cm mass in sigmoid colon extension to the adjacent fat. It was producing significant narrowing of the lumen of the sigmoid colon. There was noted to be 0.8 cm lymph node adjacent to the mass. There were no other signs of metastatic disease. He did have repeat sigmoid colon evaluation and removal of a polypoid mass. The pathology revealed infiltrating, adenocarcinoma- moderately differentiated. MLH1, MSH2, MSH6, and PMS2 testing show intact nuclear expression. Mr. Macdonald was referred to radiation medical oncology for further assessment. It is been record that he have neoadjuvant concurrent therapy prior to surgical resection. He will most likely require adjuvant chemotherapy following the surgery. He began concurrent therapy on 05/12/2018. His Xeloda dose was 1500 mg twice a day on the days of radiation only. He remained on the Xeloda untill 06/19/2018. CT scan of abdomen pelvis done on 07/21/2018 showed significant reduction in the colorectal mass on 09/09/2018, he underwent laparoscopic descending colostomy formation once realized during laparoscopic evaluation the patient has nonresectable colorectal cancer directly invading the base of the bladder and bilateral pelvic sidewalls. And also underwent repair of incarcerated umbilical hernia in [place] 2. COPD 3. Hyperlipidemia 4. CAD stent replacement in 2004 5. Diabetes 6. Abdominal hernia 7. Total left knee replacement Recently on 09/09/2018, underwent laparoscopic evaluation and found to have nonresectable colorectal cancer directly invading the base of the bladder and bilateral pelvic sidewalls although biopsies from this mass showed chronic inflammation. The role of palliative chemotherapy with FOLFOX was discussed in detail and recommended modified dose FOLFOX ???[address] scan of pelvis. Mr Macdonald began his first cycle of chemotherapy on 10/18/2018. He is tolerating it well thus far. Follow-up CT scan of abdomen pelvis done on 01/05/2019 showed continued decrease in size of sigmoid/rectum tumor. Residual tumor is difficult to measure but reported at a maximum diameter of approximated 1.8 cm. There is a fat plane the urinary bladder and sigmoid tumor. No adenopathy was reported. Small retroperitoneal nodes are less than 1 cm with no new nodes or increase in size of previous notes. No distant metastasis to the adrenals or liver. His spleen is 19.3 cm which is unchanged. At patient's request ,he was referred to Department of colorectal surgery at [facility] for second opinion, patient saw Dr. Sandeep Pruitt. As per patient, surgery with end-to-end anastomosis was possible but he was advised to finish his recommended chemotherapy with FOLFOX prior to surgery. He completed 12 doses of FOLFOX on 03/29/2019. He was then referred back to [facility]. Status post concurrent combined chemoradiation with oral Xeloda till June 2018 followed by systemic chemotherapy with modified dose FOLFOX ???12 the 03/29/2019 followed by open right colectomy, anterior resection with diverting loop ileostomy and partial resection of dome of bladder which showed no invasion. Done on 05/12/2019, final pathology report showed adenocarcinoma, moderately differentiated with extension into pericolic soft tissue to bladder without invasion of bladder T4a, surgical margins free of tumor Bladder muscularis propria with fibrosis and no evidence of malignancy. Adenocarcinoma with extensive necrosis with associated fistula tract into periileal soft tissues and invasion limited to muscularis propria of ileum. Appendix with adenocarcinoma limited to periappendiceal soft tissue and no direct invasion of appendix. Left colon with diverticulum and no evidence of malignancy. 20 lymph nodes examined with no evidence of metastatic disease. discussed with Mr & Mrs Macdonald further treatment options including clinical trials based on guardant 360 results which showed multiple mutation including NRAS,BRAF. and Mr Macdonald declined clinical trial but agreed to try 6 months of Xeloda as recommended by , medical oncologist at [facility].On August 10, 2019 was sterted on Xeloda one thousand milligrams per meter square by mouth twice a day for 2 weeks and repeat every 21 days ???8 cycle, as long as tolerated. We will try this dose for 2 cycles and if tolerated well then will titrate up to 1250 mg/m??? by mouth twice a day 2 weeks on 1 week off. But adjuvant oral Xeloda therapy was discontinued on September 15, 2019 at patient and his 's request, knowing the risk versus benefits associated with his disease status, being high risk for recurrence. And follow-up CT scan of abdomen pelvis done September 10, 2019 showed no evidence of recurrence of disease except stable mild splenomegaly and slightly aneurysmal distal infrarenal abdominal aorta measuring 2.7 x 2.9 cm. Follow-up CT scan of abdomen pelvis done on May 22, 2020 showed interval takedown left lower quadrant ileostomy and stable mild splenomegaly and no evidence of new or progressive disease, postoperative changes seen. Follow-up CT scan done on December 29, 2020 showed no evidence of metastatic disease or recurrent neoplasm at colonic anastomosis site. Small mesenteric and retroperitoneal lymph nodes are stable. Moderate splenomegaly, unchanged Follow-up CT scan of abdomen pelvis done on April 30, 2021 shows no evidence of recurrence or metastatic disease. Postop changes in sigmoid colon/transverse colon. Persistent hepatosplenomegaly but stable, diffuse fatty infiltration of liver Colonoscopy done on February 20, 2021 showed no evidence of neoplastic recurrence but gastroplasty changes in the large bowel, biopsy was obtained, as per patient it was benign. Plan: Discussed with patient regarding his labs white blood count 4.9 hemoglobin 13.5 hematocrit 41.7 platelets 92,000 compared to 136,000 previously CMP within normal limit except sodium 134 and CEA 1.9 compared to 4.7 previously Clinically, patient is doing well with no new signs symptoms history of disease recurrence, his lab work-up is within normal range except mild fluctuating thrombocytopenia, his tumor marker CEA is gone down to 1.9 compared to 4.7 previously. At this point we will continue to monitor and then he will return to clinic in 6 months with CBC CMP and CEA, patient was advised in case any evidence of gross bleeding, he need to call us. In the meantime he will continue monthly port maintenance and will repeat his CBC in a month to ensure mild thrombocytopenia recovery. Signed By: Hollis Bautista M.D. <<Signature on File>>
== END 2021-11-07 08:55 | disposition home or self-care (01) ==
LOC: ONCMED 08:56
PROVIDERS: PCP Family Medicine; Visit Provider Internal Medicine Hematology & Oncology
DX: R16.2 Hepatomegaly with splenomegaly, not elsewhere classified (principal); Z90.49 Acquired absence of other specified parts of digestive tract; C19 Malignant neoplasm of rectosigmoid junction
CPT/HCPCS: 99214

== ENCOUNTER 2022-06-05 12:18 | Oncology outpatient (recurring) (ONCR) | payer MEDICARE, SELFPAY | END 2022-06-16 23:59 | disposition home or self-care (01) | PROVIDERS: PCP Family Medicine; Visit Provider Nurse Practitioner Family | DX: Z08 Encounter for follow-up examination after completed treatment for malignant neoplasm (principal); Z85.048 Personal history of other malignant neoplasm of rectum, rectosigmoid junction, and anus; J44.9 Chronic obstructive pulmonary disease, unspecified; E78.5 Hyperlipidemia, unspecified; I25.10 Atherosclerotic heart disease of native coronary artery without angina pectoris; E11.59 Type 2 diabetes mellitus with other circulatory complications; K44.9 Diaphragmatic hernia without obstruction or gangrene; Z96.652 Presence of left artificial knee joint; Z95.5 Presence of coronary angioplasty implant and graft; Z92.21 Personal history of antineoplastic chemotherapy; Z92.3 Personal history of irradiation; Z87.891 Personal history of nicotine dependence | CPT/HCPCS: 99214 ==

== ENCOUNTER 2022-07-01 13:48 | Oncology outpatient (recurring) (ONCR) | payer MEDICARE, SELFPAY ==
--- NOTE | 2022-07-01 14:17 | CT_ITS ---
WS: [id number] CT ABDOMEN PELVIS TECHNIQUE: Contrast-enhanced CT of the abdomen and pelvis with coronal and sagittal reformatted image s. CLINICAL INFORMATION: SURVEILLANCE COMPARISON: CT April 30, 2021 and 12/29/20 DLP: 1220.[address] scans at [facility] use at least one of these dose optimization techniques: automated e xposure control; mA and/or kV adjustment per patient size (includes targeted exams where dose is matc hed to clinical indication); or iterative reconstruction. FINDINGS: Cardiomegaly. Cirrhotic configuration to the liver. Splenomegaly. Evidence of portal venous hypertens ion. Normal GE junction. Small amount of perihepatic and perisplenic ascites. Recommend correlation w ith liver function tests. Mild diffuse body wall anasarca and mesenteric edema. Lung bases are well a erated. Prominent lymph nodes in the upper abdomen and raven hepatis likely reactive. Portal vein and splenic vein appear patent. Adrenal glands are normal. Normal renal parenchymal enhan cement. No hydronephrosis. Sigmoid diverticulosis. No evidence of acute diverticulitis. Slight anterolisthesis L4 on L5. Prior LEFT ileostomy. Ectatic distal abdominal aorta measuring 2.[address]/CT abdomen pelvis w con* [id number] IMPRESSION: 1. Prior postoperative changes sigmoid colon and transverse colon with partial colectomy. 2. No definite evidence of colonic metastatic disease. 3. New changes of cirrhosis with cirrhotic liver and splenomegaly. Evidence of portal venous hypertension with a small amount of perisplenic and perihepatic ascites. Recommend correlation with liver function tests. 4. Prominent lymph nodes with mesenteric edema in the upper abdomen and raven hepatis likely reactive. 5. Diffuse body wall anasarca.
[2022-07-01 14:49] LABS: Blood Urea Nitrogen 17 mg/dL (8-23)
[2022-07-01] MEDS: iohexol 350 mg/mL 100 mL Btl IV (14:58)
== END 2022-07-17 23:59 | disposition home or self-care (01) ==
LOC: RAD 13:49 → ONCMED 07-16 04:36
PROVIDERS: PCP Family Medicine; Visit Provider Nurse Practitioner Family
DX: C18.9 Malignant neoplasm of colon, unspecified (principal)
CPT/HCPCS: 74177; 82565; 84520

== ENCOUNTER 2022-08-02 09:09 | Oncology outpatient (recurring) (ONCR) | payer MEDICARE, SELFPAY ==
[2022-08-02 10:21] LABS: Basophils % 0.2 %; Eosinophils % 0.7 %; Hematocrit 37.7 % (42.0-52.0); Hemoglobin 11.8 g/dL (11.7-16.6); Lymphocytes # 0.5 10^3/uL (0.8-4.8); Lymphocytes % 10.8 %; Mean Corpuscular HGB Conc 31.3 g/dL (30.0-36.0); Mean Corpuscular Hemoglobin 31.5 pg (28.0-34.0); Mean Corpuscular Volume 100.5 fl (80-94); Mean Platelet Volume 10.1 fL (7.4-10.4); Monocytes # 0.6 10^3/uL (0.2-0.9); Monocytes % 12.6 %; Neutrophils % 75.3 %; Nucleated Red Blood Cells % 0 %; Platelet Count 73 10^3/cmm (130-400); Red Blood Count 3.75 10^6/uL (4.1-5.3); Red Cell Distribution Width 15.3 % (12.1-15.1); White Blood Count 4.5 10^3/uL (4.0-10.0)
[2022-08-02 10:44] LABS: Alanine Aminotransferase 16 U/L (0-41); Albumin Level 3.5 g/dL (3.5-5.2); Alkaline Phosphatase 151 U/L (40-130); Anion Gap 11.4 (5-19); Aspartate Amino Transferase 25 U/L (0-40); Blood Urea Nitrogen 20 mg/dL (8-23); Calcium 8.8 mg/dL (8.5-10.5); Carbon Dioxide 28 mmol/L (22-29); Chloride 103 mmol/L (98-107); Globulin 3.4 g/dL (1.3-4.6); Glucose 162 mg/dL (65-115); Osmolality Calculated 290 mOsm/kg (285-295); Potassium 5.4 mmol/L (3.5-5.1); Sodium 137 mmol/L (136-145); Total Bilirubin 0.4 mg/dL (0.15-1.2); Total Protein 6.9 g/dL (6.6-8.7)
[2022-08-02 11:09] LABS: Hepatitis A Antibody IgM Non-Reactive (Nonreactive); Hepatitis B Core AB, Total Non-Reactive (Nonreactive); Hepatitis B Surface AB 3.5 (11.5-1000); Hepatitis B Surface Antigen Non-Reactive (Nonreactive); Hepatitis C Virus Antibody Non-Reactive (Nonreactive)
[2022-08-02 11:14] LABS: Immunoglobulin IGA 537 mg/dL (70-400); Immunoglobulin IGG 1261 mg/dL (700-1600); Immunoglobulin IGM 77 mg/dL (40-230)
[2022-08-05 16:27] LABS: Anti-Nuclear Antibody Screen NEGATIVE (NEGATIVE)
[2022-08-05 22:12] LABS: Liver Kidney Microsome (LKM-1) <=20.0 U (<=20.0)
[2022-08-06 12:32] LABS: Smooth Muscle Ab Screen NEGATIVE (NEGATIVE)
== END 2022-08-16 23:59 | disposition home or self-care (01) ==
PROVIDERS: Nurse Practitioner Family; PCP Family Medicine; Visit Provider Internal Medicine Hematology & Oncology
DX: C18.9 Malignant neoplasm of colon, unspecified (principal); Z01.89 Encounter for other specified special examinations
CPT/HCPCS: 36415; 80053; 82784; 83516; 83520; 85025; 86038; 86376; 86705; 86706; 86709; 86803; 87340

== ENCOUNTER 2022-09-17 10:11 | Outpatient (CLI) | payer MEDICARE, SELFPAY ==
[2022-09-17] MEDS: iohexol 350 mg/mL 100 mL Btl IV (10:46)
--- NOTE | 2022-09-17 12:00 | CT_ITS ---
WS: [id number] CT CHEST, ABDOMEN, AND PELVIS TECHNIQUE: Contrast-enhanced CT of the chest, abdomen, and pelvis with coronal and sagittal reformatt ed images. CLINICAL INFORMATION: Follow up COMPARISON: CT abdomen pelvis July 01, 2020 2. April 30, 2021. Outside CT chest abdomen pelvis 2018. DLP: 1850.[address] scans at [facility] use at least one of these dose optimization techniques: automated e xposure control; mA and/or kV adjustment per patient size (includes targeted exams where dose is matc hed to clinical indication); or iterative reconstruction. CT CHEST: Normal caliber thoracic aorta. Aortic calcification. Prominent main pulmonary arteries can be seen wi th pulmonary arterial hypertension. No mediastinal or hilar lymphadenopathy. No axillary lymphadenopa thy.Small subpleural nodule RIGHT upper lobe the lung apex measuring 6 mm. Small esophageal hiatal hernia. Moderate chronic emphysematous changes. No acute pulmonary infiltrate s. No focal pneumonia or pleural fluid. Slight atelectasis in the lung bases. A few calcified granulo mas. No axillary lymphadenopathy. CT ABDOMEN AND PELVIS: Prior postoperative changes sigmoid colon and transverse colon resection with partial colectomy. Cirr hotic liver with splenomegaly. Evidence of portal venous hypertension. Perihepatic and perisplenic as cites. Normal gallbladder. Prominent lymph nodes in the upper abdomen and raven hepatis likely reacti ve. A few prominent lymph nodes along the central mesentery. Diffuse body wall anasarca. Small amount of mesenteric ascites. Sigmoid diverticulosis. No evidence of acute diverticulitis. Pringle sverse colon anastomosis is normal in appearance. Fatty atrophy of the pancreas. Aortic calcification . Adrenal glands are normal. Normal renal parenchymal enhancement. No hydronephrosis in either kidney . Slightly ectatic distal abdominal aorta measuring 2.9 x 2.8 cm AP by transverse. Slight anterolisthesis L4 on L5. CT/CT chest abd pel w con* IMPRESSION: 1. Small 6 mm subpleural nodule RIGHT upper lobe slightly more prominent al red to 2018 2. No other suspicious pulmonary parenchymal opacities. 3. No mediastinal or hilar lymphadenopathy. 4. Cirrhosis with splenomegaly and evidence of portal venous hypertension. Pro minent lymph nodes in the upper abdomen and raven hepatis likely reactive simil ar to previous. 5. Small amount of edema in the mesentery. Diffuse body wall anasarca. 6. Prior postoperative changes sigmoid colon and transverse colon resection wi th partial colectomy. 7. No evidence of metastatic disease in abdomen or pelvis.
== END 2022-09-17 10:12 | disposition home or self-care (01) ==
LOC: RAD 10:12
PROVIDERS: PCP Family Medicine; Visit Provider Internal Medicine Hematology & Oncology
DX: C18.9 Malignant neoplasm of colon, unspecified (principal); R91.1 Solitary pulmonary nodule
CPT/HCPCS: 71260; 74177